=== PATIENT | female | born 1960 | race Caucasian/White ===

== ENCOUNTER → 2016-08-29 | Outpatient (CLI) | payer BC ==
[~2016-08-29] MED LIST: AMLO5TAB2 PO; ASPI81TA28 PO; ATV/1 PO; CALC500T25 PO; CHOL1000 PO; ERGO500037 PO; ERYT1OIN55 OPR; ESOM20CA PO; FURO40TA3 PO; IBUP-103 PO; LEVO150T PO; LORA-741 PO; LOSA100T65 PO; MISCCAP80 PO; MULTTAB58 PO; MXZC25 PO; OMEGCAP2 PO; OMEP20CA9 PO; OXYC-57 PO; PSYL48.59 PO
== END | disposition home or self-care (01) ==
LOC: C.PAPS 10:23
PROVIDERS: ATTEND Obstetrics & Gynecology
DX: Z01.419 Encounter for gynecological examination (general) (routine) without abnormal findings (principal)

== ENCOUNTER → 2016-11-29 | Outpatient (CLI) | payer BC | END | disposition home or self-care (01) | LOC: C.PATHSPEC 13:38 | PROVIDERS: ATTEND Obstetrics & Gynecology | DX: N95.0 Postmenopausal bleeding (principal) ==

== ENCOUNTER 2017-01-06 05:40 | Observation (INO) | payer BC ==
[2016-12-30 12:56] VITALS: BMI 48.0
--- NOTE | 2016-12-30 13:41 | PAT Medication Instructions ---
Service Date Dec 30, 2016. Current Home Medication List Aspirin (Aspirin Ec), 81 MG PO QAM Calcium Carbonate (Calcium), 1 TAB PO QAM Cholecalciferol (Vitamin D3), 1 TAB PO QAM Erythromycin (Ophth) (Ilotycin), 1 DOSE OPR TID PRN for PRN Furosemide (Lasix), 40 MG PO DAILY PRN for FLUID ACCUMULATION Ibuprofen Tab (Advil), 400 MG PO PRN Levothyroxine Sodium (Synthroid), 150 MCG PO 5XWK Levothyroxine Sodium (Synthroid), 1.5 TAB PO 2XWK Lorazepam (Ativan), 1 MG PO TID PRN for PRN Losartan Potassium (Cozaar), 100 MG PO QAM Multiple Vitamin (Multivitamin), 1 TAB PO QAM [place]-3 Fatty Acids (Fish Oil), 1 CAP PO QAM Omeprazole (Prilosec), 20 MG PO QAM Probiotic Product (Probiotic), 1 CAP PO QAM Psyllium (Metamucil), 1 DOSE PO QAM Triamterene/Hctz (Triamterene/Hctz 37.5-25MG Tab), 1 TAB PO QAM Medication Instructions For Your Scheduled Surgery Aspirin (Aspirin Ec), 81 MG PO QAM (not taking currently) Ibuprofen Tab (Advil), 400 MG PO PRN (not taking currently) [place]-3 Fatty Acids (Fish Oil), 1 CAP PO QAM (not taking currently) - Hold the following medications the morning of surgery: Triamterene/Hctz (Triamterene/Hctz 37.5-25MG Tab), 1 TAB PO QAM Psyllium (Metamucil), 1 DOSE PO QAM Probiotic Product (Probiotic), 1 CAP PO QAM Multiple Vitamin (Multivitamin), 1 TAB PO QAM Losartan Potassium (Cozaar), 100 MG PO QAM Furosemide (Lasix), 40 MG PO DAILY PRN for FLUID ACCUMULATION Calcium Carbonate (Calcium), 1 TAB PO QAM Cholecalciferol (Vitamin D3), 1 TAB PO QAM - Take the following medications the morning of surgery with a sip of water: Omeprazole (Prilosec), 20 MG PO QAM Lorazepam (Ativan), 1 MG PO TID PRN for PRN Levothyroxine Sodium (Synthroid), Erythromycin (Ophth) (Ilotycin), 1 DOSE OPR TID PRN for PRN - Take the following medications as scheduled the night before surgery: Lorazepam (Ativan), 1 MG PO TID PRN for PRN Erythromycin (Ophth) (Ilotycin), 1 DOSE OPR TID PRN for PRN If you have any questions please call us at [phone] or [phone] ( [place]) or [phone]
[2016-12-30 14:15] LABS: BASO % 0.2 %; BASO ABS # 0.01 K/uL (0-0.2); COMPLETE YES; EOS % 2.1 %; HEMATOCRIT 40.3 % (37-47); IG% 0.2 %; LYMPH % 26.8 %; LYMPH ABS # 1.56 K/uL (1.2-3.4); MEAN CELL VOLUME 93.5 fL (80-100); MEAN CORPUSCULAR HEMOGLOBIN 32.3 pg (25-34); MEAN CORPUSCULAR HGB CONC 34.5 g/dl (32-36); MEAN PLATELET VOLUME 10.6 fL (7.4-10.4); MONO % 6.7 %; PLATELET COUNT 166 K/uL (130-400); RED BLOOD COUNT 4.31 M/uL (4.2-5.4); WHITE BLOOD COUNT 5.82 K/uL (4.8-10.8)
[2016-12-30 15:43] LABS: BUN/CREATININE RATIO 16.2 (10-20); CALCIUM 9.3 mg/dl (8.5-10.1); CREATININE 1.5 mg/dl (0.60-1.20); POTASSIUM 3.5 mmol/L (3.5-5.1)
[~2017-01-06] VITALS: Ht 165.1 cm; Wt 132.0 kg
[2017-01-06] VITALS (7 sets, daily range): BP systolic 103–182; BP diastolic 60–91; PULSE 62–94; TEMP 36.3–36.8; O2SAT 2–98; Ht 165.1 cm; Wt 132.0 kg
[~2017-01-06 05:40] MED LIST changes: -ERGO500037 PO; -LORA-741 PO; -OMEP20CA9 PO; -OXYC-57 PO
[2017-01-06] MEDS ORDERED: CEFAZOLIN 3000 MG/65 ML D5W IV SCH (06:00)
[2017-01-06] MEDS ORDERED: LACTATED RINGER'S 1000ML 1,000 ML IV SCH ×2 (06:00)
[2017-01-06] MEDS ORDERED: EpHEDrine SULFATE INJ 50 MG/ML AMP ONE (06:46)
[2017-01-06] MEDS ORDERED: ONDANSETRON INJ 2 MG/ML 2 ML VIAL ONE (06:46)
[2017-01-06] MEDS ORDERED: PROPOFOL IV EMULSION 10 MG/ML 20 ML VIAL IV ONE (06:46)
[2017-01-06] MEDS ORDERED: ROCURONIUM BROMIDE 10 MG/ML 5 ML VIAL ONE (06:46)
[2017-01-06] MEDS ORDERED: MIDAZOLAM HCL 1 MG/ML 2ML VIAL ONE (06:46)
[2017-01-06] MEDS ORDERED: LIDOCAINE HCL 2% 2 ML VIAL (20MG/ML) ONE (06:46)
[2017-01-06] MEDS ORDERED: PHENYLEPHRINE HCL INJ 10 MG/ML VIAL ONE (06:46)
[2017-01-06] MEDS ORDERED: DEXAMETHASONE SOD INJ 4 MG/ML VIAL ONE ×2 (06:46→06:58)
[2017-01-06] MEDS ORDERED: SUCCINYLCHOLINE CHLORIDE 20 MG/ML 10 ML VIAL IV ONE (06:46)
[2017-01-06] MEDS ORDERED: FENTANYL CITRATE INJ 50 MCG/1 ML 2 ML VIAL ONE (06:46)
[2017-01-06] MEDS ORDERED: GLYCOPYRROLATE INJ 0.2 MG/ML VIAL ONE (06:46)
[2017-01-06] MEDS ORDERED: NEOSTIGMINE METHYLSULFATE 5 MG/5 ML SYR ONE (06:46)
--- NOTE | 2017-01-06 06:53 | History & Physical Bridge Note ---
H&P Re-Evaluation Bridge Note: I have examined the patient, reviewed the History & Physical and in the interval since the performance of the History & Physical I have noted the following changes of clinical significance: No changes noted
[2017-01-06] MEDS ORDERED: METHYLENE BLUE 0.5% 10 ML VIAL ONE (06:57)
[2017-01-06] MEDS ORDERED: LACTATED RINGER'S 1000ML 1,000 ML IV PRN (07:11)
[2017-01-06] MEDS ORDERED: HYDROmorphone INJ 1 MG/ML SYR IV PRN (07:15)
[2017-01-06] MEDS ORDERED: FENTANYL CITRATE INJ 50 MCG/1 ML 2 ML VIAL IV PRN (07:15)
[2017-01-06] MEDS ORDERED: ONDANSETRON INJ 2 MG/ML 2 ML VIAL IV PRN ×2 (07:15→09:45)
[2017-01-06] MEDS ORDERED: ARTIFICIAL TEARS OP OINT 3.5 GM TUBE ONE (09:15)
[2017-01-06] MEDS ORDERED: D5W AND LACTATED RINGERS 1,000 ML IV SCH (09:32)
--- NOTE | 2017-01-06 09:35 | Discharge Instructions ---
Discharge Instructions Date of Service Jan 06, 2017. Visit Reason for Visit: Post Menopausal Bleeding Discharge Discharge Diagnosis / Problem: hysterectomy Discharge Goals Goal(s): Specific goals Activity Recommendations Activity Limitations: per Instructions/Follow-up section Anesthesia . Post Anesthesia Instructions: If you have had General Anesthesia or IV Sedation: * Do not drive today. * Resume driving when surgeon permits. * Do not make important decisions or sign legal documents today. * Call surgeon for: 1. Temperature elevations greater than 101 degrees F. 2. Uncontrollable pain. 3. Excessive bleeding. 4. Persistent nausea and vomiting. 5. Medication intolerance (nausea, vomiting or rash). * For nausea and vomiting use only clear liquids such as: tea, soda, bouillon until nausea subsides, then gradually increase diet as tolerated. * If you have any concerns or questions, call your surgeon's office. If physician is unavailable and it is an emergency, call 911 or go to the nearest emergency room. . Instructions / Follow-Up Instructions / Follow-Up POST OPERATIVE: BOWEL FUNCTION/MEDICATIONS: 1. Constipation pain and discomfort are the most common complaints 5-7 days after surgery. Points 2-6 address the things that can help. 2. Chewing gum can help stimulate the gut and help improve digestion and motility. 3. Milk of Magnesia 1-2 times per day until return of bowel function. 4. Colace is a stool softener that helps. Taking this 2-3 times per day until bowel function returns to normal is highly recommended. 5. Dulcolax is a laxative that may be used if several days have passed without a bowel movement. Alternatively Miralax may be used daily instead. 6. Drink plenty of fluids as this will also reduce constipation. 7. Narcotic pain medications will be prescribed by your physician. They are safe to use and we encourage you to use them. If you are not allergic, ibuprofen will also be prescribed. Many patients will be able to transition off of the narcotic medications to ibuprofen by postoperative day 3. ACTIVITY RECOMMENDATIONS: 1. Get plenty of rest and listen to your body. If you are tired, take a nap. 2. You may shower, but do not take a tub bath until you see your doctor at the 2 week post operative visit. 3. Absolutely NO intercourse and nothing in the vagina until you are examined by your doctor at the 6 week visit. At that visit it will be determined when such activities can be resumed. This can range from 6-12 weeks after your surgery depending on healing time. 4. The main physical activity in the first week should be walking. By the second week you can slowly increase activity. There are no limits on walking up and down stairs. 5. Do not lift more than 5-10 lbs for 4 weeks. Remember the "one-handed rule", i.e. if you can lift something with only one hand it's likely okay. 6. Minimize weapons and tactics instructor like vacuuming and exercising for 4 weeks. "Overdoing it" can lead to incisions not healing, pain and vaginal bleeding , so again, listen to your body. 7. Driving can be resumed when you feel able. Do not drive within 24 hours of taking a narcotic medication. EXPECTATIONS: 1. Vaginal spotting, bleeding and discharge are common after surgery. There may even be an odor to the discharge which is often related to sutures used in the vagina. If you experience heavy vaginal bleeding, call the office number day or night [phone]. 2. Bladder discomfort is common after surgery from the catheter. This usually resolves in 1-2 weeks. 3. By the end of the 3rd or 4th week you should be feeling much better. It may take up to 6 weeks for your energy levels to return to normal. 4. Narcotic medications have side effects such as: dizziness, headache, nausea and/or vomiting. If you suspect your pain medication is causing problems, call our office and we may be able to prescribe an alternate medication. 5. The skin incisions are often covered with a liquid bandage. This will gradually peel off over time. CALL THE OFFICE IF YOU HAVE ANY OF THE FOLLOWIN. Temperature of 101 degrees or higher. 2. Severe abdominal or pelvic pain not relieved by pain medication. 3. Persistent nausea or vomiting. 4. Increased pain with urination or difficulty urinating. 5. Bright red bleeding that soaks more than 1 pad per hour. CONTACT PHONE NUMBERS: Main Office: [phone] Surgical Nurse: [phone] extension [phone] FOLLOW-UP: Post-Operative Appointments: * Individual instructions will have been given about the timing of your first examination, but this is usually at the end of the second week home. * You will need to call the office at soon after discharge to make the appointment for your post-op check-up if it has not already been scheduled. * Additional information regarding activity, sexual intercourse and when to return to work will be given at this appointment. WE WISH YOU A SPEEDY RECOVERY! Diet Recommendations Recommended Home Diet: resume previous diet Procedures Procedures Performed: Total Laparoscopic Hysterectomy Bilateral Salpingectomy Robot Assist; Cystoscopy Pending Studies Studies pending at discharge: no Medical Emergencies . Who to Call and When: Medical Emergencies: If at any time you feel your situation is an emergency, please call 911 immediately. . Non-Emergent Contact Non-Emergency issues call your: Primary Care Provider . . "Provider Documentation" section prepared by Baylee Garzon. . [place] Drug Monitoring Program Search Results: patient reviewed within database, no issues identified
--- NOTE | 2017-01-06 09:36 | [facility] Post Operative Brief Note ---
Immediate Operative Summary Operative Date Jan 06, 2017. Pre-Operative Diagnosis Post Menopausal Bleeding and uterine Prolapse Post-Operative Diagnosis Same as preop Procedure(s) Performed Total Laparoscopic Hysterectomy Bilateral Salpingectomy Robot Assist; Cystoscopy Surgeon Dr. Garzon Lithopone Charger Surgeon(s) None Estimated Blood Loss 20 ML Findings Significant fatty deposits throughout pelvis, including on mesosalpinx and broad ligaments. Normal ovaries, tubes bilaterally. Uterus small, laxity in uterosacral ligaments. Specimens A. Cervix, Uterus, and Bilateral Fallopian Tubes Complication(s) None Disposition Recovery Room / PACU
[2017-01-06] MEDS ORDERED: PROMETHAZINE HCL INJ 25 MG in SODIUM CHLORIDE 0.9% 50ML 50 ML IV PRN (09:45)
[2017-01-06] MEDS ORDERED: KETOROLAC TROMETHAMINE 30 MG/ML VIAL IV. PRN (09:45)
[2017-01-06] MEDS ORDERED: IBUPROFEN 600 MG TAB PO PRN (09:45)
[2017-01-06] MEDS ORDERED: ACETAMINOPHEN 325 MG TAB PO PRN (09:45)
[2017-01-06] MEDS ORDERED: SIMETHICONE 80 MG CHEW PO PRN (09:45)
[2017-01-06] MEDS ORDERED: PROMETHAZINE HCL INJ 12.5 MG in SODIUM CHLORIDE 0.9% 50ML 50 ML IV PRN (09:45)
[2017-01-06] MEDS ORDERED: OXYCODONE/ACETAMINOPHEN 5-325 TAB PO PRN ×2 (09:45)
[2017-01-06] MEDS ORDERED: MEPERIDINE HCL 50 MG/ML CARP IV PRN ×2 (09:45)
--- NOTE | 2017-01-06 10:10 | Anesthesiology Progress Note ---
Anesthesia Post Op Note Date & Time Jan 06, 2017 at 10:10 Vital Signs Pain Intensity: 5 Vital Signs Past 12 Hours Date Time Temp Pulse Resp B/P (MAP) Pulse Ox O2 Delivery O2 Flow Rate FiO2 01/06/17 10:02 70 19 95 01/06/17 10:02 70 19 01/06/17 10:01 102/62 01/06/17 09:57 66 21 01/06/17 09:57 67 21 92 01/06/17 09:56 107/57 01/06/17 09:52 62 18 92 01/06/17 09:52 62 18 01/06/17 09:51 97/53 01/06/17 09:47 65 17 01/06/17 09:47 65 17 95 01/06/17 09:46 102/59 01/06/17 09:42 66 18 94 01/06/17 09:42 66 18 01/06/17 09:41 97/59 01/06/17 09:37 64 17 01/06/17 09:37 64 17 96 01/06/17 09:36 93/57 01/06/17 09:32 69 16 01/06/17 09:32 69 16 95 01/06/17 09:31 99/62 01/06/17 09:27 66 20 01/06/17 09:27 66 20 97 01/06/17 09:26 97/56 01/06/17 09:24 95/56 01/06/17 09:22 76 76 01/06/17 09:22 36.0 72 12 95/56 94 Mask 15 01/06/17 09:22 76 76 90 01/06/17 06:13 36.8 94 18 182/91 (121) 96 Room Air Notes Mental Status: alert / awake / arousable, participated in evaluation Pt Amnestic to Procedure: Yes Nausea / Vomiting: adequately controlled Pain: adequately controlled Airway Patency, RR, SpO2: stable & adequate BP & HR: stable & adequate Hydration State: stable & adequate Anesthetic Complications: no major complications apparent Pt drowsy but doing well. Pain tolerable.
--- NOTE | 2017-01-06 10:17 | OPERATIVE REPORT ---
DATE OF OPERATION: 01/06/2017 PREOPERATIVE DIAGNOSES: Recurrent postmenopausal bleeding and uterine prolapse. POSTOPERATIVE DIAGNOSES: Same. PROCEDURES: Total laparoscopic hysterectomy, bilateral salpingectomy with robotic assistance and cystoscopy. SURGEON: Dr. Baylee Garzon. INDUSTRIAL AUTOMATION ENGINEER: None. ESTIMATED BLOOD LOSS: 20 mL. FINDINGS: Significant fatty deposit throughout the pelvis including on the mesosalpinx and broad ligaments bilaterally. Normal ovaries and tubes bilaterally. Uterus was small with significant laxity in the uterosacral ligaments. SPECIMENS: Cervix, uterus, and bilateral fallopian tubes. COMPLICATIONS: None. DISPOSITION: Stable to recovery room. DESCRIPTION OF PROCEDURE: Debbie is a 56-year-old patient who has been followed for several years with postmenopausal bleeding, who desired termination of these recurrent workup by removing the uterus. Additionally, she has uterine prolapse, which has been successfully managed with a pessary, but the patient is optimistic that removing the uterus may improve her prolapse. She was counseled and is well aware that prior to surgery, we cannot guarantee that her prolapse will be significantly improved or cured as due to her personal history, she cannot tolerate a placement of any permanent sutures or mesh. The patient was brought to the operating room, placed on the table in the supine position and then dorsal lithotomy with Yellofin stirrups. She was prepped and draped in standard sterile fashion and a hard time-out was taken prior to proceeding. Chavez and a [employer] uterine manipulator were placed. Attention was then turned to the abdomen, where a supraumbilical incision was made. An optical entry was made using a 12-mm port and the abdomen was then insufflated with CO2 gas. Under direct visualization, right and left lower quadrant ports were placed. The patient was placed in steep Trendelenburg and visualization of the pelvic organs revealed significant fatty deposits, but otherwise normal organs as described above. The robot was then docked and surgery began. The sigmoid colon was freed of several adhesions over the left pelvic sidewall in order to mobilize this and increase visibility of the left IP ligament; however, due to fatty deposits, we were able to directly visualize the ureter on either side. The mesosalpinx was then dissected to free the fallopian tubes. The uteroovarian ligament was ligated and divided. The round ligament was ligated and divided and the bladder flap was started on the left side. This procedure was then repeated on the right and a bladder flap was then created completely across the front of the uterus. The posterior broad ligament was dissected to skeletonize the uterine arteries, which were ligated and divided bilaterally. Colpotomy was completed circumferentially and the uterus, cervix and bilateral fallopian tubes were delivered through the vagina. The V-Loc suture was used to close the vaginal cuff in the typical running nonlocked manner; however, caution was undertaken to securely incorporate the uterosacral ligaments bilaterally into this cuff. Once the cuff was closed, the suture and residual needle were removed. The suction top frame maker was used to irrigate and clean the cuff site, which revealed good hemostasis; however, there was a small area of oozing from between the sutures in the midline. It was felt that this would be best addressed by Tisseel, which was then applied across the cuff to achieve good hemostasis. At this time, all the laparoscopic instruments were removed. The patient was undocked from the robot and partially taken out of Trendelenburg. Cystoscopy was then performed. Although methylene blue was administered at least 15 minutes prior to cystoscopy, limited blue dye was seen in the Chavez catheter and the jets of urine, which were seen from each ureteral orifice were minimally if at all stained blue. The patient has known significant renal insufficiency and it was felt that the additional risk of waiting for her to create blue stained urine was not worth the risks of the additional anesthetic time, which she would be receiving while we waited. Therefore, we accepted jets of very minimally stained mostly yellow urine from each ureteral orifice as evidence of ureteral patency. The bladder was then drained. Instruments were removed from the abdomen. The umbilical site was closed with a UR-6 suture at the fascial level. Again, given the patient's personal history, we elected not to place any sutures at the skin and instead, all 3 incisions were closed with Dermabond and the patient was then transferred in stable condition to recovery room. I attest to the content of the Intraoperative Record and any orders documented therein. Any exceptions are noted below. VERNA
[2017-01-06] MEDS: IV FLUIDS COMPLETED PRN ×2 (11:00→16:32)
[2017-01-06] MEDS ORDERED: TISSEEL FIBRIN SEALANT 10ML TOP ONE (11:41)
[2017-01-06] MEDS ORDERED: OXYC-57 PO (14:52)
[2017-01-06 15:10] LABS: HEMATOCRIT 38.1 % (37-47)
[2017-01-06] MEDS ORDERED: DOCUSATE SODIUM 100 MG CAP PO SCH (20:00)
--- NOTE | 2017-01-16 10:06 | Discharge Summary ---
Discharge Summary Date of Service Jan 16, 2017. Discharge Summary Admission Date: Jan 06, 2017 at 05:50 Discharge Date: Jan 06, 2017 Discharge Disposition: Home Principal Diagnosis: PMB, Prolapse, Hysterectomy Procedures: Robotic TLH, Salpingectomy, Cystoscopy Medication Reconciliation New Medications: Oxycodone/Acetaminophen 5MG/325MG (Percocet 5MG/325MG) Tab 1 TABLET PO Q4H PRN for Pain, #15 TAB Continued Medications: Amlodipine Besylate (Norvasc) 5 Mg Tab 1 TAB PO DAILY, TAB Aspirin (Aspirin Ec) 81 Mg Tab 81 MG PO QAM Calcium Carbonate (Calcium) 1,250 Mg Tab 1 TAB PO QAM Cholecalciferol (Vitamin D3) 1,000 Unit Tab 1 TAB PO QAM for 90 Days, #90 TAB 3 Refills Erythromycin (Ophth) (Ilotycin) 5 Mg/Gm Oin 1 DOSE OPR TID PRN for PRN Esomeprazole Magnesium (Nexium) 20 Mg Capcr 1 TAB PO DAILY, CAP Furosemide (Lasix) 40 Mg Tab 40 MG PO DAILY PRN for FLUID ACCUMULATION, TAB Ibuprofen Tab (Advil) 200 Mg Tab 400 MG PO PRN, TAB Levothyroxine Sodium (Synthroid) 150 Mcg Tab 150 MCG PO 5XWK, TAB DAILY EXCEPT FRIDAY AND FRIDAYS-AM Levothyroxine Sodium (Synthroid) 150 Mcg Tab 1.5 TAB PO 2XWK, TAB TAKE ON MONDAYS AND FRIDAYS-AM Lorazepam (Ativan) 1 Mg Tab 1 MG PO TID PRN for PRN, TAB Losartan Potassium (Cozaar) 100 Mg Tab 100 MG PO QAM, TAB Multiple Vitamin (Multivitamin) 1 Tab Tab 1 TAB PO QAM, TAB [place]-3 Fatty Acids (Fish Oil) 1 Cap Cap 1 CAP PO QAM Probiotic Product (Probiotic) 1 Cap Cap 1 CAP PO QAM Psyllium (Metamucil) 48.57 % Pow 1 DOSE PO QAM Triamterene/Hctz (Triamterene/Hctz 37.5-25MG Tab) 1 Tab Tab 1 TAB PO QAM, TAB Hospital Course Uncomplicated surgery as planned, discharge in good condition POD#0 with routine f/u. Total Time Spent: Less than 30 minutes This includes examination of the patient, discharge planning, medication reconciliation, and communication with other providers. Discharge Instructions Please refer to the electronic Patient Visit Report (Discharge Instructions) for additional information.
== END 2017-01-06 18:20 | disposition home or self-care (01) ==
LOC: C.ACU 05:40 → C.OBG 05:50 → ENRESERV 10:30
PROVIDERS: ADMIT Obstetrics & Gynecology; ATTEND Obstetrics & Gynecology
DX: N95.0 Postmenopausal bleeding (principal); N81.4 Uterovaginal prolapse, unspecified; J45.909 Unspecified asthma, uncomplicated; N18.9 Chronic kidney disease, unspecified; G51.0 Bell's palsy; I12.9 Hypertensive chronic kidney disease with stage 1 through stage 4 chronic kidney disease, or unspecified chronic kidney disease; M19.90 Unspecified osteoarthritis, unspecified site; Z98.890 Other specified postprocedural states; Z79.899 Other long term (current) drug therapy; Z88.1 Allergy status to other antibiotic agents; E66.01 Morbid (severe) obesity due to excess calories; Z68.42 Body mass index [BMI] 45.0-49.9, adult; Z83.49 Family history of other endocrine, nutritional and metabolic diseases; Z82.49 Family history of ischemic heart disease and other diseases of the circulatory system
CPT/HCPCS: 58571; S2900

== ENCOUNTER → 2017-02-19 | Outpatient (CLI) | payer BC ==
[~2017-02-19] MED LIST changes: +OXYC-57 PO
[2017-02-19 11:08] LABS: BLOOD UREA NITROGEN 22 mg/dl (7-18); BUN/CREATININE RATIO 14.8 (10-20); CALCIUM 9.1 mg/dl (8.5-10.1); CARBON DIOXIDE 31 mmol/L (21-32); CHLORIDE 106 mmol/L (98-107); GLUCOSE 114 mg/dl (70-99); POTASSIUM 3.3 mmol/L (3.5-5.1); SODIUM 140 mmol/L (136-145)
== END | disposition home or self-care (01) ==
LOC: C.LAB1850 09:51
PROVIDERS: ATTEND Family Medicine
DX: N28.9 Disorder of kidney and ureter, unspecified (principal)

== ENCOUNTER → 2017-03-10 | Outpatient (CLI) | payer BC ==
[2017-03-10 14:29] LABS: URINE APPEARANCE CLEAR (CLEAR); URINE BILIRUBIN NEG (NEG); URINE COLOR YELLOW; URINE EPITHELIAL CELL AUTO >30 /lpf (0-5); URINE NITRITE NEG (NEG); URINE SPECIFIC GRAVITY 1.013 (1.000-1.030); UROBILINOGEN NEG (NEG); ZZUR CULT IF INDIC CLEAN CATCH NO
[2017-03-10 14:50] LABS: URINE PROTIEN/CREAT RATIO 0.2 (0-0.2); URINE TOTAL PROTEIN 9.7 mg/dl (0-11.9)
[2017-03-10 14:55] LABS: MANUAL MICROSCOPIC REQUIRED? NO; REVIEW REQ? NO
== END | disposition home or self-care (01) ==
LOC: C.LAB1850 12:13
PROVIDERS: ATTEND Internal Medicine Nephrology
DX: N18.3 Chronic kidney disease, stage 3 (moderate) (principal)

== ENCOUNTER → 2017-03-20 | Outpatient (CLI) | payer BC ==
--- NOTE | 2017-03-20 11:47 | DIAGNOSTIC IMAGING REPORT ---
RENAL ULTRASOUND CLINICAL HISTORY: Hypokalemia. COMPARISON STUDY: None. TECHNIQUE: Sonography of the kidneys and the urinary bladder was performed. FINDINGS: The right kidney measures 9.8 x 4.9 x 4.6 cm and left measures 11 x 5.1 x 5.1 cm. There is no hydronephrosis. Renal echogenicity, size and cortical thickness are normal. Bladder is unremarkable. Study is mildly compromised by suboptimal penetration. IMPRESSION: Normal sonographic appearance of the kidneys. No hydronephrosis. Electronically signed by: Brendan Butts M.D. 03/20/2017 11:46 AM Dictated Date/Time: 03/20/2017 11:45 AM
== END | disposition home or self-care (01) ==
LOC: C.ULTR 10:54
PROVIDERS: ATTEND Internal Medicine Nephrology
DX: E87.6 Hypokalemia (principal)

== ENCOUNTER → 2017-04-29 | Outpatient (CLI) | payer BC ==
[2017-04-29 10:08] LABS: BASO % 0.3 %; BASO ABS # 0.02 K/uL (0-0.2); COMPLETE YES; EOS % 1.9 %; HEMATOCRIT 39.2 % (37-47); IG% 0.1 %; LYMPH % 27.8 %; LYMPH ABS # 1.87 K/uL (1.2-3.4); MEAN CELL VOLUME 93.6 fL (80-100); MEAN CORPUSCULAR HEMOGLOBIN 30.8 pg (25-34); MEAN CORPUSCULAR HGB CONC 32.9 g/dl (32-36); MEAN PLATELET VOLUME 10.6 fL (7.4-10.4); MONO % 5.2 %; NEUT % 64.7 %; PLATELET COUNT 161 K/uL (130-400); RED BLOOD COUNT 4.19 M/uL (4.2-5.4); WHITE BLOOD COUNT 6.72 K/uL (4.8-10.8)
[2017-04-29 10:24] LABS: BLOOD UREA NITROGEN 36 mg/dl (7-18); BUN/CREATININE RATIO 18.7 (10-20); CALCIUM 8.7 mg/dl (8.5-10.1); CARBON DIOXIDE 25 mmol/L (21-32); CHLORIDE 107 mmol/L (98-107); GLUCOSE 119 mg/dl (70-99); MAGNESIUM 1.7 mg/dl (1.8-2.4); POTASSIUM 3.6 mmol/L (3.5-5.1); SODIUM 141 mmol/L (136-145)
== END | disposition home or self-care (01) ==
LOC: C.LAB1850 09:13
PROVIDERS: ATTEND Internal Medicine Nephrology
DX: N18.3 Chronic kidney disease, stage 3 (moderate) (principal)

== ENCOUNTER → 2017-06-13 | Outpatient (CLI) | payer BC ==
[2017-06-13 09:35] LABS: BLOOD UREA NITROGEN 28 mg/dl (7-18); BUN/CREATININE RATIO 21.2 (10-20); CALCIUM 9.4 mg/dl (8.5-10.1); CARBON DIOXIDE 27 mmol/L (21-32); CHLORIDE 102 mmol/L (98-107); GLUCOSE 129 mg/dl (70-99); MAGNESIUM 1.9 mg/dl (1.8-2.4); PHOSPHORUS 2.8 mg/dl (2.5-4.9); POTASSIUM 3.2 mmol/L (3.5-5.1); SODIUM 137 mmol/L (136-145)
== END | disposition home or self-care (01) ==
LOC: C.LAB 07:26
PROVIDERS: ATTEND Internal Medicine Nephrology
DX: N18.3 Chronic kidney disease, stage 3 (moderate) (principal); E87.6 Hypokalemia

== ENCOUNTER → 2017-07-30 | Outpatient (CLI) | payer OTHER ==
[~2017-07-30] MED LIST changes: -OXYC-57 PO
[2017-07-30 10:01] LABS: BLOOD UREA NITROGEN 23 mg/dl (7-18); CALCIUM 9.4 mg/dl (8.5-10.1); CARBON DIOXIDE 29 mmol/L (21-32); GLUCOSE 133 mg/dl (70-99); POTASSIUM 3.4 mmol/L (3.5-5.1); SODIUM 137 mmol/L (136-145)
== END | disposition home or self-care (01) ==
LOC: C.LAB1850 08:42
PROVIDERS: ATTEND Internal Medicine Nephrology
DX: E87.6 Hypokalemia (principal)

== ENCOUNTER → 2017-09-19 | Outpatient (CLI) | payer OTHER ==
[2017-09-19 09:34] LABS: BASO % 0.2 %; BASO ABS # 0.01 K/uL (0-0.2); EOS % 2.4 %; EOS ABS # 0.14 K/uL (0-0.5); HEMATOCRIT 40.8 % (37-47); HEMOGLOBIN 13.8 g/dL (12.0-16.0); IG# 0.02 K/uL (0.00-0.02); LYMPH % 31.9 %; LYMPH ABS # 1.83 K/uL (1.2-3.4); MEAN CELL VOLUME 94.4 fL (80-100); MEAN CORPUSCULAR HEMOGLOBIN 31.9 pg (25-34); MEAN CORPUSCULAR HGB CONC 33.8 g/dl (32-36); MEAN PLATELET VOLUME 10.8 fL (7.4-10.4); MONO % 5.1 %; MONO ABS # 0.29 K/uL (0.11-0.59); NEUT % 60.1 %; NEUT ABS # 3.44 K/uL (1.4-6.5); PLATELET COUNT 167 K/uL (130-400); RED CELL DISTRIBUTION WIDTH CV 14.1 % (11.5-14.5); WHITE BLOOD COUNT 5.73 K/uL (4.8-10.8)
[2017-09-19 09:53] LABS: HEMOGLOBIN A1C 6.1 % (4.5-5.6)
[2017-09-19 09:56] LABS: BLOOD UREA NITROGEN 17 mg/dl (7-18); CALCIUM 8.9 mg/dl (8.5-10.1); CARBON DIOXIDE 28 mmol/L (21-32); CREATININE 1.13 mg/dl (0.60-1.20); GLUCOSE 130 mg/dl (70-99); POTASSIUM 3.5 mmol/L (3.5-5.1); SODIUM 138 mmol/L (136-145)
[2017-09-19 10:06] LABS: TRANSFERRIN 222 mg/dl (200-360)
== END | disposition home or self-care (01) ==
LOC: C.LAB1850 08:28
PROVIDERS: ATTEND Internal Medicine Nephrology
DX: R73.9 Hyperglycemia, unspecified (principal); E03.9 Hypothyroidism, unspecified; E87.6 Hypokalemia; N18.3 Chronic kidney disease, stage 3 (moderate); I12.9 Hypertensive chronic kidney disease with stage 1 through stage 4 chronic kidney disease, or unspecified chronic kidney disease

== ENCOUNTER → 2017-10-17 | Outpatient (CLI) | payer OTHER ==
--- NOTE | 2017-10-22 07:55 | MAMMOGRAPHY REPORT ---
BILATERAL DIGITAL SCREENING MAMMOGRAM TOMOSYNTHESIS WITH CAD: 10/17/2017 CLINICAL HISTORY: Routine screening. Patient has no complaints. There are numerous benign rim calcifications scattered in the breasts. Stable faint groupings of pun ctate micro calcifications in the left breast. Mild involutional changes comparing to more remote pr ior mammograms. TECHNIQUE: Breast tomosynthesis in addition to standard 2D mammography was performed. Current study was also evaluated with a Computer Aided Detection (CAD) system. COMPARISON: Comparison is made to exams dated: 06/24/2016 mammogram, 06/21/2015 mammogram, 06/20/2014 m ammogram, 06/18/2013 mammogram, and 06/17/2012 mammogram - [facility]. BREAST COMPOSITION: The tissue of both breasts is almost entirely fatty. FINDINGS: There are numerous benign rim calcifications scattered in the breasts. Stable faint groupi ngs of punctate microcalcifications in the left breast. Mild involutional changes comparing to more remote prior mammograms. No new suspicious mass, architectural distortion or cluster of microcalcific ations is seen. IMPRESSION: ACR BI-RADS CATEGORY 1: NEGATIVE There is no mammographic evidence of malignancy. A 1 year screening mammogram is recommended. The pa tient will receive written notification of the results. Approximately 10% of breast cancers are not detected with mammography. A negative mammographic report should not delay biopsy if a clinically suggestive mass is present. Esli Lorenzana M.D. ay/:10/21/2017 14:14:48 Resistor Testing Machine Operator: Parish Dupree M, [facility] letter sent: Normal 1/2 BI-RADS Code: ACR BI-RADS Category 1: Negative
== END | disposition home or self-care (01) ==
LOC: C.MAMM 10:23
PROVIDERS: ATTEND Obstetrics & Gynecology
DX: Z12.31 Encounter for screening mammogram for malignant neoplasm of breast (principal)

== ENCOUNTER → 2017-11-17 | Outpatient (CLI) | payer OTHER ==
[2017-11-17 09:55] LABS: ALBUMIN 3.6 gm/dl (3.4-5.0); BLOOD UREA NITROGEN 18 mg/dl (7-18); CALCIUM 9.2 mg/dl (8.5-10.1); CARBON DIOXIDE 28 mmol/L (21-32); CREATININE 1.48 mg/dl (0.60-1.20); GLUCOSE 118 mg/dl (70-99); POTASSIUM 3.5 mmol/L (3.5-5.1); SODIUM 140 mmol/L (136-145)
[2017-11-17 10:06] LABS: PHOSPHORUS 3.3 mg/dl (2.5-4.9)
== END | disposition home or self-care (01) ==
LOC: C.LAB1850 08:24
PROVIDERS: ATTEND Internal Medicine Nephrology
DX: N18.3 Chronic kidney disease, stage 3 (moderate) (principal)

== ENCOUNTER 2020-08-25 19:51 | Inpatient (IN) ==
[2020-08-25] MEDS ORDERED: ONDANSETRON INJ 2 MG/ML 2 ML VIAL IV STA (20:32)
--- NOTE | 2020-08-25 20:37 | Emergency Department Note ---
Impression & Plan DKA (diabetic ketoacidoses), SEMAJ (acute kidney injury), Acute dehydration, Hypokalemia ED Provider Note NAME: AVELINA TREVINO AGE: 60 SEX: F : 1960 ARRIVES VIA: Walk-In INFORMANT: [Patient] ED PROVIDER(S): [Altaf Galvan MD] CHIEF COMPLAINT: Hyperglycemia HISTORY OF PRESENT ILLNESS: The patient is a 60-year-old female presents to the ER with a blood sugar around 800. The patient states that she stopped her Metformin just over a week ago because it was making her feel poorly. She was taking it because she was told she was prediabetic. In the last 24 to 48 hours the patient has noticed nausea and weakness and fatigue. She is sleeping all the time. She is always thirsty and she is urinating quite frequently. No fever, no chest pain or shortness of breath. She has noticed some occasional abdominal cramps. No urinary burning. REVIEW OF SYSTEMS: See HPI for pertinent positives and negatives. A total of ten systems were reviewed and were otherwise negative. PMHx/PSHx: See Below SOCIAL HISTORY: See Below. PHYSICAL EXAM: GENERAL: Patient is in no acute distress. HEENT: No acute trauma, normocephalic atraumatic, mucous membranes moist, no nasal congestion, no scleral icterus. NECK: No stridor, no adenopathy, no meningismus, trachea is midline. LUNGS: Clear to auscultation bilaterally, no wheeze, no rhonchi, breath sounds equal. HEART: Mildly tachycardic, regular rhythm, no murmurs. ABDOMEN: Soft, nontender, bowel sounds positive, no hernias, no peritonitis. EXTREMITIES: No cyanosis, mild bilateral pedal edema, full range of motion of all the joints without pain or difficulty, no signs for acute trauma. NEUROLOGIC: Oriented x 3, no acute motor or sensory deficits, no focal weakness. SKIN: No rash, no jaundice, no diaphoresis. DIFFERENTIAL DIAGNOSIS: Infection, dehydration, metabolic abnormality, hypo/hyperglycemia, electrolyte disturbance, anemia, hypoxia, cardiac sources, intracerebral event, toxicologic issues, stroke, TIA, as well as other pathologies. EMERGENCY DEPARTMENT COURSE/PROCEDURES: ECG: Indication was weakness. The ECG shows a normal sinus rhythm with some baseline artifact. There is some nonspecific ST change. The rate is 89. The QTc is 498. There is no ST elevation, no PVCs. Continuous Cardiac Monitoring: An order was placed for continuous cardiac monitoring. The monitor shows a rate of 80 with normal sinus rhythm. Critical Care Note: I have personally spent 37 minutes of critical care time in the direct management of this patient. This includes bedside care, interpreta tion of diagnostic studies, and testing, discussion with consultants, patient, and family members, and other required patient management activities. This 37 minutes is in excess of all separately billable procedures. MEDICAL DECISION MAKING: There is no leukocytosis or concerning anemia. VBG shows a mild acidosis. Renal panel testing shows evidence for acidosis. Potassium was low at 3.3. There was evidence for acute kidney injury with a creatinine of 2.05. Glucose was quite high at 645. Alk phos was somewhat elevated, the remaining liver enzymes were unremarkable. TSH was normal indicating normal thyroid function. ECG showed a sinus rhythm, no acute ischemia. Cardiac enzyme testing x1 is not consistent with acute cardiac injury. Urinalysis shows ketones and glucose, no infection. Covid testing returned negative. Chest film did not show pneumonia or pneumothorax. No free air. On exam, the patient was mildly tachycardic. She did not appear toxic, she was not confused or febrile. The patient received 2 L of IV saline for hydration. She was given IV potassium as well as IV Zofran. The patient is in need of a hospital stay. She is in diabetic ketoacidosis. She is quite dehydrated with acute renal failure as well as hypokalemia. She is going to require IV insulin therapy. I spoke to the patient, I talked to case management. The on-call hospitalist has been consulted. I did not administer any insulin as I felt the need to furt her correct her potassium. Past Med/Surg History Medical History Asthma Chronic pain of both knees Heartburn HTN (hypertension) Leg pain, right No pertinent past medical history Postmenopausal bleeding Stage 3 chronic kidney disease Uterine prolapse Venous insufficiency Surgical History H/O: hysterectomy History of facial surgery Family History Father Cardiac disorder Colon cancer Myocardial infarction Heart disease Mother Atrial fibrillation Thyroid disease Family/Other Hypertension Denies family history of Ovarian cancer Prostate cancer Breast cancer Social History Smoking Status: Never smoker Second Hand Exposure: No; Hx Alcohol Use: Yes Alcohol type: hard liquor Alcohol Intake Frequency: 2-3 x/Week Hx Substance Use: No Preferred Language: Tajik Communication Ability: Effective Visual Impairment: No Limitations Hearing Ability: Deaf marital status: Current Living Situation: Spouse current occupational status: retired Feels Safe at Home: Yes Childhood Exposure to Second-Hand Smoke: No Dental Care, Regularly: Yes Physical Activity Frequency: 1-2 Times per Week Seatbelt Use: always Sunscreen Use: Yes Allergies Allergies Allergy/AdvReac Type Severity Reaction Status Date / Time amoxicillin Allergy Intermediate FEET Verified 08/25/20 22:49 SWELLING, THYROID ABNORMALATIES clavulanic acid Allergy Intermediate FEET Verified 08/25/20 22:49 SWELLING, THYROID ABNORMALATIES clindamycin Allergy Intermediate RASH Verified 08/25/20 22:49 Home Meds Home Medications Medication Instructions Recorded Confirmed esomeprazole magnesium 20 mg 20 mg PO DAILY cap 02/25/19 08/25/20 capsule,delayed release multivitamin 1 tab PO DAILY 02/25/19 08/25/20 albuterol sulfate 90 mcg/actuation 2 puffs INHALATION Q4H PRN #1 gm 03/30/19 08/25/20 aerosol inhaler aspirin 81 mg tablet 81 mg PO DAILY tab 03/30/19 08/25/20 erythromycin 5 mg/gram (0.5 %) eye 1 applic OP UD PRN 03/30/19 08/25/20 ointment horse chestnut 300 mg tablet 300 mg PO DAILY tab 03/30/19 08/25/20 magnesium oxide 400 mg (241.3 mg 400 mg PO DAILY #30 tab 03/30/19 08/25/20 magnesium) tablet oregano oil 1,500 mg capsule 1,500 mg PO DAILY cap 03/30/19 08/25/20 Lactobacillus 1 cap PO DAILY cap 04/27/19 08/25/20 acidophilus-Bifidobac.animalis 31 billion cell capsule cholecalciferol (vitamin D3) 125 5,000 units PO DAILY tab 04/27/19 08/25/20 mcg (5,000 unit) tablet turmeric 400 mg capsule 400 mg PO DAILY cap 04/27/19 08/25/20 omega-3 fatty acids 2 cap PO DAILY 12/27/19 08/25/20 psyllium husk 3.4 gram/5.4 gram 1 tsp PO DAILY gm 12/27/19 08/25/20 oral powder zinc 50 mg tablet 50 mg PO DAILY 04/28/20 08/25/20 diclofenac sodium 75 mg PO BID PRN 08/25/20 08/25/20 Previous Rx's Medication Instructions Recorded levothyroxine 150 mcg tablet 150 mcg PO DAILY #90 tab 12/22/19 losartan 100 mg tablet 100 mg PO DAILY #90 tab 01/04/20 triamterene 37.5 1 tab PO DAILY #90 tab 01/04/20 mg-hydrochlorothiazide 25 mg tablet potassium chloride 10 mEq 10 meq PO BID #180 tab 06/13/20 tablet,extended release Results & Data (ED) Vital Signs Vital Signs - 24 hr 08/25/20 19:56 08/25/20 20:32 08/25/20 20:35 Temperature 35.9 C L Temperature Source Temporal Artery Scan Pulse Rate 102 H 91 H Pulse Rate from SpO2 Sensor 91 H Respiratory Rate 18 19 Blood Pressure 160/109 H 168/94 H Blood Pressure Mean 126 118 Pulse Oximetry 98 97 99 Oxygen Delivery Method Room Air Room Air Sepsis Recent Fever Within 48 Hours No Sepsis New/Unexplained Change in Mental Status No Sepsis Action Taken by Nursing No Action Required 08/25/20 21:00 08/25/20 21:30 08/25/20 22:00 Temperature Temperature Source Pulse Rate 88 92 H 78 Pulse Rate from SpO2 Sensor 88 92 H 76 Respiratory Rate 19 19 23 Blood Pressure Blood Pressure Mean Pulse Oximetry 97 99 95 Oxygen Delivery Method Sepsis Recent Fever Within 48 Hours Sepsis New/Unexplained Change in Mental Status Sepsis Action Taken by Nursing 08/25/20 22:30 08/25/20 23:10 08/25/20 23:13 Temperature Temperature Source Pulse Rate 74 94 H 83 Pulse Rate from SpO2 Sensor 74 83 Respiratory Rate 18 16 15 Blood Pressure 127/105 H 166/95 H Blood Pressure Mean 112 118 Pulse Oximetry 97 99 Oxygen Delivery Method Sepsis Recent Fever Within 48 Hours Sepsis New/Unexplained Change in Mental Status Sepsis Action Taken by Nursing 08/25/20 23:30 08/25/20 23:31 02/06/21 00:00 Temperature Temperature Source Pulse Rate 82 80 80 Pulse Rate from SpO2 Sensor 79 79 80 Respiratory Rate 19 20 17 Blood Pressure 134/80 130/83 Blood Pressure Mean 98 98 Pulse Oximetry 96 97 96 Oxygen Delivery Method Room Air Sepsis Recent Fever Within 48 Hours Sepsis New/Unexplained Change in Mental Status Sepsis Action Taken by [facility] Medications Current Medication List: was personally reviewed by me Laboratory Data Attestation: I reviewed the patient's lab results. Result diagrams: 08/25/20 20:20 08/25/20 20:20 Lab Results 08/25/20 08/25/20 08/25/20 Range/Units 19:58 20:20 20:20 WBC 9.23 (4.8-10.8) K/uL RBC 5.25 (4.2-5.4) M/uL Hgb 16.4 H (12.0-16.0) g/dL Hct 46.0 (37-47) % MCV 87.6 (80-100) fL MCH 31.2 (25-34) pg MCHC 35.7 (32-36) g/dL RDW Std Deviation 44.1 (36.4-46.3) fL RDW Coeff of Fany 13.8 (11.5-14.5) % Plt Count 213 (130-400) K/uL MPV 12.1 H (7.4-10.4) fL Immature Gran % (Auto) 0.5 % Neut % (Auto) 52.2 % Lymph % (Auto) 40.7 % Johnson % (Auto) 4.2 % Eos % (Auto) 2.1 % Baso % (Auto) 0.3 % Neut # (Auto) 4.81 (1.4-6.5) K/uL Lymph # (Auto) 3.76 H (1.2-3.4) K/uL Johnson # (Auto) 0.39 (0.11-0.59) K/uL Eos # (Auto) 0.19 (0-0.5) K/uL Baso # (Auto) 0.03 (0-0.2) K/uL Immature Gran # (Auto) 0.05 H (0.00-0.02) K/uL VBG pH (7.36-7.41) VBG pCO2 (38-50) mmHg VBG pO2 mmHg VBG HCO3 mmol/L VBG O2 Saturation % VBG Base Excess mEq/L Barometric Pressure mm/Hg Sodium 129 L (136-145) mmol/L Potassium 3.3 L D (3.5-5.1) mmol/L Chloride 91 L (98-107) mmol/L Carbon Dioxide 18 L (21-32) mmol/L Anion Gap 20.0 H (3-11) BUN 36 H (7-18) mg/dl Creatinine 2.05 H (0.6-1.2) mg/dl Est Cr Clr Drug Dosing 35.9 ml/min Est GFR ( Amer) 30.0 Est GFR (Non-Af Amer) 25.9 BUN/Creatinine Ratio 17.8 (10-20) Glucose 645 H* (70-99) mg/dl POC Glucose > 600 H* (70-99) mg/dl Calcium 9.9 (8.5-10.1) mg/dl Magnesium 2.2 (1.8-2.4) mg/dl Total Bilirubin 0.7 (0.2-1) mg/dl AST 14 L (15-37) U/L ALT 34 (12-78) U/L Alkaline Phosphatase 217 H (45-117) U/L Troponin I < 0.015 (0-0.045) ng/ml Total Protein 7.2 (6.4-8.2) gm/dl Albumin 3.4 (3.4-5.0) gm/dl Globulin 3.8 (2.5-4.0) gm/dl Albumin/Globulin Ratio 0.9 (0.9-2) Beta-Hydroxybutyric Acd > 46.00 H (0.2-2.81) mg/dl TSH 0.883 (0.300-4.500) uIu/ml Urine Color Urine Appearance (Clear) Urine pH (4.5-7.5) Ur Specific [place] (1.000-1.030) Urine Protein (Negative) Urine Glucose (UA) (Negative) Urine Ketones (Negative) Urine Blood (Negative) Urine Nitrite (Negative) Urine Bilirubin (Negative) Urine Urobilinogen (Negative) Ur Leukocyte Esterase (Negative) COVID-19 Eval Order SARS-CoV-2, RNA, NAAT (NEGATIVE) 08/25/20 08/25/20 08/25/20 Range/Units 20:35 20:41 23:16 WBC (4.8-10.8) K/uL RBC (4.2-5.4) M/uL Hgb (12.0-16.0) g/dL Hct (37-47) % MCV (80-100) fL MCH (25-34) pg MCHC (32-36) g/dL RDW Std Deviation (36.4-46.3) fL RDW Coeff of Fany (11.5-14.5) % Plt Count (130-400) K/uL MPV (7.4-10.4) fL Immature Gran % (Auto) % Neut % (Auto) % Lymph % (Auto) % Johnson % (Auto) % Eos % (Auto) % Baso % (Auto) % Neut # (Auto) (1.4-6.5) K/uL Lymph # (Auto) (1.2-3.4) K/uL Johnson # (Auto) (0.11-0.59) K/uL Eos # (Auto) (0-0.5) K/uL Baso # (Auto) (0-0.2) K/uL Immature Gran # (Auto) (0.00-0.02) K/uL VBG pH 7.34 L (7.36-7.41) VBG pCO2 39 (38-50) mmHg VBG pO2 33 mmHg VBG HCO3 20 mmol/L VBG O2 Saturation 66.3 % VBG Base Excess -4.9 mEq/L Barometric Pressure 726.2 mm/Hg Sodium (136-145) mmol/L Potassium (3.5-5.1) mmol/L Chloride (98-107) mmol/L Carbon Dioxide (21-32) mmol/L Anion Gap (3-11) BUN (7-18) mg/dl Creatinine (0.6-1.2) mg/dl Est Cr Clr Drug Dosing ml/min Est GFR ( Amer) Est GFR (Non-Af Amer) BUN/Creatinine Ratio (10-20) Glucose (70-99) mg/dl POC Glucose (70-99) mg/dl Calcium (8.5-10.1) mg/dl Magnesium (1.8-2.4) mg/dl Total Bilirubin (0.2-1) mg/dl AST (15-37) U/L ALT (12-78) U/L Alkaline Phosphatase (45-117) U/L Troponin I (0-0.045) ng/ml Total Protein (6.4-8.2) gm/dl Albumin (3.4-5.0) gm/dl Globulin (2.5-4.0) gm/dl Albumin/Globulin Ratio (0.9-2) Beta-Hydroxybutyric Acd (0.2-2.81) mg/dl TSH (0.300-4.500) uIu/ml Urine Color Yellow Urine Appearance Clear (Clear) Urine pH 5.0 (4.5-7.5) Ur Specific [place] 1.032 H (1.000-1.030) Urine Protein Negative (Negative) Urine Glucose (UA) 3+ H (Negative) Urine Ketones 3+ H (Negative) Urine Blood Negative (Negative) Urine Nitrite Negative (Negative) Urine Bilirubin Negative (Negative) Urine Urobilinogen Negative (Negative) Ur Leukocyte Esterase Negative (Negative) COVID-19 Eval Order Covid19 [facility] SARS-CoV-2, RNA, NAAT (NEGATIVE) 08/25/20 08/25/20 Range/Units 23:16 23:25 WBC (4.8-10.8) K/uL RBC (4.2-5.4) M/uL Hgb (12.0-16.0) g/dL Hct (37-47) % MCV (80-100) fL MCH (25-34) pg MCHC (32-36) g/dL RDW Std Deviation (36.4-46.3) fL RDW Coeff of Fany (11.5-14.5) % Plt Count (130-400) K/uL MPV (7.4-10.4) fL Immature Gran % (Auto) % Neut % (Auto) % Lymph % (Auto) % Johnson % (Auto) % Eos % (Auto) % Baso % (Auto) % Neut # (Auto) (1.4-6.5) K/uL Lymph # (Auto) (1.2-3.4) K/uL Johnson # (Auto) (0.11-0.59) K/uL Eos # (Auto) (0-0.5) K/uL Baso # (Auto) (0-0.2) K/uL Immature Gran # (Auto) (0.00-0.02) K/uL VBG pH (7.36-7.41) VBG pCO2 (38-50) mmHg VBG pO2 mmHg VBG HCO3 mmol/L VBG O2 Saturation % VBG Base Excess mEq/L Barometric Pressure mm/Hg Sodium (136-145) mmol/L Potassium (3.5-5.1) mmol/L Chloride (98-107) mmol/L Carbon Dioxide (21-32) mmol/L Anion Gap (3-11) BUN (7-18) mg/dl Creatinine (0.6-1.2) mg/dl Est Cr Clr Drug Dosing ml/min Est GFR ( Amer) Est GFR (Non-Af Amer) BUN/Creatinine Ratio (10-20) Glucose (70-99) mg/dl POC Glucose > 600 H* (70-99) mg/dl Calcium (8.5-10.1) mg/dl Magnesium (1.8-2.4) mg/dl Total Bilirubin (0.2-1) mg/dl AST (15-37) U/L ALT (12-78) U/L Alkaline Phosphatase (45-117) U/L Troponin I (0-0.045) ng/ml Total Protein (6.4-8.2) gm/dl Albumin (3.4-5.0) gm/dl Globulin (2.5-4.0) gm/dl Albumin/Globulin Ratio (0.9-2) Beta-Hydroxybutyric Acd (0.2-2.81) mg/dl TSH (0.300-4.500) uIu/ml Urine Color Urine Appearance (Clear) Urine pH (4.5-7.5) Ur Specific [place] (1.000-1.030) Urine Protein (Negative) Urine Glucose (UA) (Negative) Urine Ketones (Negative) Urine Blood (Negative) Urine Nitrite (Negative) Urine Bilirubin (Negative) Urine Urobilinogen (Negative) Ur Leukocyte Esterase (Negative) COVID-19 Eval Order SARS-CoV-2, RNA, NAAT NEGATIVE (NEGATIVE) Administered Medications Discontinued Medications Sodium Chloride (Nss 1000ml) 2,000 mls @ 999 mls/hr IV .Q2H1M NERI Stop: 02/05/21 22:45 Last Infusion: 08/25/20 23:13 Dose: 0 mls/hr Documented by: [id number] Admin: 08/25/20 20:52 Dose: 999 mls/hr Documented by: [id number] Potassium Chloride (K Vic / Wtr) 10 meq in 100 mls @ 100 mls/hr IV ONE ONE Stop: 08/25/20 23:16 Last Infusion: 08/25/20 23:27 Dose: 0 mls/hr Documented by: [id number] Admin: 08/25/20 22:28 Dose: 100 mls/hr Documented by: [id number] Ondansetron HCl (Ondansetron Inj 2 Mg/Ml 2 Ml Vial) 4 mg IV NOW STA Stop: 08/25/20 20:33 Last Admin: 08/25/20 21:18 Dose: Not Given Documented by: [id number] Imaging Data Radiologist's Impression: XR chest 1V portable HISTORY: 60 years-old Female weakness acute weakness COMPARISON: None TECHNIQUE: Portable AP view of the chest FINDINGS: Cardiomediastinal and hilar silhouettes are within normal limits. No pneumothorax, large pleural effusion or overt pulmonary edema. Mild blunting of the left costophrenic angle. Mild left hemidiaphragmatic elevation. Degenerative changes of the shoulders and spine. IMPRESSION: Mild blunting of the left costophrenic angle suggestive of atelectasis versus trace effusion.. Discharge Plan Visit Data Chief Complaint: Hyperglycemia Stated Complaint: high blood sugar, 806 ED Provider: Altaf Galvan Discharge Problem: DKA (diabetic ketoacidoses), SEMAJ (acute kidney injury), Acute dehydration, Hypokalemia Patient Disposition: Admitted As Inpatient Condition: Fair Forms Stand Alone Forms: My [facility] Prescriptions Prescriptions: No Action levothyroxine 150 mcg tablet 150 mcg PO DAILY Qty: 90 RF: 3 losartan 100 mg tablet 100 mg PO DAILY Qty: 90 RF: 3 triamterene-hydrochlorothiazid 37.5-25 mg tablet 1 tab PO DAILY Qty: 90 RF: 3 potassium chloride 10 mEq tablet extended release 10 meq PO BID Qty: 180 RF: 1 omega-3 fatty acids 2 cap PO DAILY RF: 0 zinc 50 mg tablet 50 mg PO DAILY RF: 0 multivitamin [Daily Multi-Vitamin] tablet 1 tab PO DAILY RF: 0 esomeprazole magnesium [Nexium] 20 mg capsule,delayed release(DR/EC) 20 mg PO DAILY RF: 0 aspirin 81 mg tablet 81 mg PO DAILY RF: 0 magnesium oxide 400 mg (241.3 mg magnesium) tablet 400 mg PO DAILY Qty: 30 RF: 0 oregano oil 1,500 mg capsule 1,500 mg PO DAILY RF: 0 horse chestnut 300 mg tablet 300 mg PO DAILY RF: 0 cholecalciferol (vitamin D3) 5,000 unit tablet 5,000 units PO DAILY RF: 0 Lacto.acidophilus-Bif.animalis 31 billion cell capsule 1 cap PO DAILY RF: 0 turmeric 400 mg capsule 400 mg PO DAILY RF: 0 Metamucil 3.4 gram/5.4 gram powder 1 tsp PO DAILY RF: 0 erythromycin 5 mg/gram (0.5 %) ointment 1 applic OP UD PRN (Reason: ..) RF: 0 albuterol sulfate 90 mcg/actuation HFA aerosol inhaler 2 puffs inhalation Q4H PRN (Reason: Shortness Of Breath Or Wheezing) Qty: 1 RF: 0 diclofenac sodium 75 mg tablet,delayed release (DR/EC) 75 mg PO BID PRN (Reason: Pain) RF: 0 Referrals Referrals: Chelsie Cornell MD [Primary Care Provider] - Discharge Problem: DKA (diabetic ketoacidoses) Qualifiers: Diabetes mellitus type: type 1 Diabetes mellitus complication detail: without coma Qualified Code(s): E10.10 - Type 1 diabetes mellitus with ketoacidosis without coma
[2020-08-25 20:44] LABS: Basophils # (auto) 0.03 K/uL (0-0.2); Basophils % (auto) 0.3 %; Eosinophils # (auto) 0.19 K/uL (0-0.5); Eosinophils % (auto) 2.1 %; Hemoglobin 16.4 g/dL (12.0-16.0); Immature Granulocytes # (auto) 0.05 K/uL (0.00-0.02); Immature Granulocytes % (auto) 0.5 %; Lymphocytes # (auto) 3.76 K/uL (1.2-3.4); Lymphocytes % (auto) 40.7 %; Mean Corpuscular Hemoglobin 31.2 pg (25-34); Mean Corpuscular Hgb Conc 35.7 g/dL (32-36); Mean Corpuscular Volume 87.6 fL (80-100); Mean Platelet Volume 12.1 fL (7.4-10.4); Monocytes # (auto) 0.39 K/uL (0.11-0.59); Monocytes % (auto) 4.2 %; Neutrophils # (auto) 4.81 K/uL (1.4-6.5); Neutrophils % (auto) 52.2 %; Platelet Count 213 K/uL (130-400); RDW Coefficient of Variation 13.8 % (11.5-14.5); RDW Standard Deviation 44.1 fL (36.4-46.3); Red Blood Count 5.25 M/uL (4.2-5.4); White Blood Count 9.23 K/uL (4.8-10.8)
[2020-08-25] MEDS ORDERED: SODIUM CHLORIDE 0.9% 1000ML 2,000 ML IV SCH (20:45)
[2020-08-25 20:53] LABS: Appearance Urine Clear (Clear); Bilirubin Urine Negative (Negative); Blood Urine Negative (Negative); Color Urine Yellow; Glucose Urine UA 3+ (Negative); Ketones Urine 3+ (Negative); Leukocyte Esterase Urine Negative (Negative); Nitrite Urine Negative (Negative); Protein Urine Negative (Negative); Specific Gravity Urine 1.032 (1.000-1.030); Urobilinogen Urine Negative (Negative)
[2020-08-25 20:55] LABS: Base Excess VBG -4.9 mEq/L; Oxygen Saturation VBG 66.3 %; pH VBG 7.34 (7.36-7.41)
--- NOTE | 2020-08-25 21:06 | XRay Report ---
XR chest 1V portable HISTORY: 60 years-old Female weakness acute weakness COMPARISON: None TECHNIQUE: Portable AP view of the chest FINDINGS: Cardiomediastinal and hilar silhouettes are within normal limits. No pneumothorax, large pleural effu shyla or overt pulmonary edema. Mild blunting of the left costophrenic angle. Mild left hemidiaphragma tic elevation. Degenerative changes of the shoulders and spine. IMPRESSION: Mild blunting of the left costophrenic angle suggestive of atelectasis versus trace effus ion.. ACT 112: Negative or not required by law. The above report was generated using voice recognition software. It may contain grammatical, syntax o r spelling errors. Electronically signed by: Taco Caro M.D. 08/25/2020 9:04 PM
[2020-08-25 21:43] LABS: Alanine Aminotransferase 34 U/L (12-78); Albumin Globulin Ratio 0.9 (0.9-2); Albumin Level 3.4 gm/dl (3.4-5.0); Aspartate Aminotransferase 14 U/L (15-37); BUN Creatinine Ratio 17.8 (10-20); Bilirubin,Total 0.7 mg/dl (0.2-1); Blood Urea Nitrogen 36 mg/dl (7-18); Calcium 9.9 mg/dl (8.5-10.1); Carbon Dioxide 18 mmol/L (21-32); Chloride 91 mmol/L (98-107); Creatinine Clr Calc Pharmacy 35.9 ml/min; Est GFR (Non-African American) 25.9; Globulin 3.8 gm/dl (2.5-4.0); Glucose 645 mg/dl (70-99); Magnesium 2.2 mg/dl (1.8-2.4); Sodium 129 mmol/L (136-145); Total Protein 7.2 gm/dl (6.4-8.2)
[2020-08-25 21:44] LABS: Potassium 3.3 mmol/L (3.5-5.1)
[2020-08-25 21:56] LABS: Alkaline Phosphatase 217 U/L (45-117); Thyroid Stimulating Hormone 0.883 uIu/ml (0.300-4.500); Troponin I < 0.015 ng/ml (0-0.045)
[2020-08-25 22:14] LABS: Beta-Hydroxybutyrate > 46.00 mg/dl (0.2-2.81)
[2020-08-25] MEDS ORDERED: POTASSIUM CHLORIDE / WTR 10 MEQ/100 ML PLCT IV ONE (22:17)
[2020-08-26] MEDS ORDERED: HHS GOAL RANGE 250-350 mg/dl ONE (01:05)
[2020-08-26] MEDS ORDERED: PHARMACY GLYCEMIC MGMT CONSULT STA (01:05)
[2020-08-26] MEDS ORDERED: NovoLIN-R INSULIN PER UNIT CHARGE IV STA (01:05)
--- NOTE | 2020-08-26 01:13 | History & Physical Report ---
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 Hyperosmolar Hyperglycemic State -On admission with Glucose 806, Gap 18, Na 129, Cl 87, K 4.3, Beta- Hydroxybutyric Acid 53.14 -Mild Acidosis noted on VBG -In ED received 2L NSS, IV potassium, and Zofran -Labs q4h -Started on high rate fluids NSS +20meq KCl 250ml/hr -Will give 10u Regular insulin instead of utilizing drip as suspect patient will respond rapidly -Replete electrolytes PRN -Pharmacy consulted for assistance in management -Plan to transition to Novolog subq once sugars reach ~300's Acute on chronic kidney injury -Base Cr ~1.15 -Elevated at 2.01 on admission, suspect hypovolemia -Hold Losartan and HCTZ/Triamterene Asthma -Albuterol PRN Hypothyroidism -Continue home Levothyroxine 150mcg QD Hypertension -Hold Losartan -Hold HCTZ/Triamterene GERD -Continue home Protonix 40mg QD Dispo: FEN: NPO, NSS +20meq KCl 250ml/hr DVT: Heparin TID Code: Full (2) Asthma: (3) HTN (hypertension): (4) Hyperglycemia: (5) Hypothyroidism: History of Present Illness Chief Complaint: Fatigue Primary Care Provider: Chelsie Cornell MD Patient is a 60 year old female with PMHx 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 Patient notes that she had been started on Metformin initially in January of 2020 for insulin resistance, and that her dose was increased this past June to 1000mg daily. She stopped taking it 1 week ago due to having abdominal side effects and has noticed that since stopping she has had increased thirst and subsequent increased urination due to taking in more PO. She also notes that the past week she has felt over all increased fatigue and weakness. Denies any specific limb or area of weakness, but that it is very generalized. She has also had a lack of appetite this week. Denies any fever, chills, SOB, chest pain, abdominal pain, nausea, vomiting, diarrhea. Med Hx - Wilbur Palsy, Acoustic Neuroma, CKD Stage III, Asthma, Hypothyroidism, Hypertension, GERD, DM2 Surg Hx - Multiple facial surgeries regarding her history of Wilbur Palsy Social Hx - No tobacco or illicit drug use. Quit alcohol 3 months ago, was having 2-3 shots of liquor weekly. Fam Hx - No family hx of DM. Mother Afib, CHF, Hypothyroidism. Brother CHF, Hypothyroidism. Sister Aortic Aneurysm. Allergies Allergy/AdvReac Type Severity Reaction Status Date / Time amoxicillin Allergy Intermediate FEET Verified 08/25/20 22:49 SWELLING, THYROID ABNORMALATIES clavulanic acid Allergy Intermediate FEET Verified 08/25/20 22:49 SWELLING, THYROID ABNORMALATIES clindamycin Allergy Intermediate RASH Verified 08/25/20 22:49 Home Medications Medication Instructions Recorded Confirmed Type esomeprazole magnesium 20 mg 20 mg PO DAILY cap 02/25/19 08/25/20 History capsule,delayed release multivitamin 1 tab PO DAILY 02/25/19 08/25/20 History albuterol sulfate 90 mcg/actuation 2 puffs INHALATION Q4H PRN #1 gm 03/30/19 08/25/20 History aerosol inhaler aspirin 81 mg tablet 81 mg PO DAILY tab 03/30/19 08/25/20 History erythromycin 5 mg/gram (0.5 %) eye 1 applic OP UD PRN gm 03/30/19 08/25/20 History ointment horse chestnut 300 mg tablet 300 mg PO DAILY tab 03/30/19 08/25/20 History magnesium oxide 400 mg (241.3 mg 400 mg PO DAILY #30 tab 03/30/19 08/25/20 History magnesium) tablet oregano oil 1,500 mg capsule 1,500 mg PO DAILY cap 03/30/19 08/25/20 History Lactobacillus 1 cap PO DAILY cap 04/27/19 08/25/20 History acidophilus-Bifidobac.animalis 31 billion cell capsule cholecalciferol (vitamin D3) 125 5,000 units PO DAILY tab 04/27/19 08/25/20 History mcg (5,000 unit) tablet turmeric 400 mg capsule 400 mg PO DAILY cap 04/27/19 08/25/20 History levothyroxine 150 mcg tablet 150 mcg PO DAILY #90 tab 12/22/19 08/25/20 Rx omega-3 fatty acids 2 cap PO DAILY 12/27/19 08/25/20 History psyllium husk 3.4 gram/5.4 gram 1 tsp PO DAILY gm 12/27/19 08/25/20 History oral powder losartan 100 mg tablet 100 mg PO DAILY #90 tab 01/04/20 08/25/20 Rx triamterene 37.5 1 tab PO DAILY #90 tab 01/04/20 08/25/20 Rx mg-hydrochlorothiazide 25 mg tablet zinc 50 mg tablet 50 mg PO DAILY 04/28/20 08/25/20 History potassium chloride 10 mEq 10 meq PO BID #180 tab 06/13/20 08/25/20 Rx tablet,extended release diclofenac sodium 75 mg PO BID PRN 08/25/20 08/25/20 History Past Med/Surg History Medical History Asthma Chronic pain of both knees Heartburn HTN (hypertension) Leg pain, right No pertinent past medical history Postmenopausal bleeding Stage 3 chronic kidney disease Uterine prolapse Venous insufficiency Surgical History H/O: hysterectomy History of facial surgery Family History Father Cardiac disorder Colon cancer Myocardial infarction Heart disease Mother Atrial fibrillation Thyroid disease Family/Other Hypertension Denies family history of Ovarian cancer Prostate cancer Breast cancer Social History Smoking Status: Never smoker Second Hand Exposure: No; Hx Alcohol Use: Yes Alcohol type: hard liquor Alcohol Intake Frequency: 2-3 x/Week Hx Substance Use: No Preferred Language: Yoruba Communication Ability: Effective Visual Impairment: No Limitations Hearing Ability: Simplex Operator Required: No Beliefs That Will Affect Care: None marital status: Current Living Situation: Spouse current occupational status: retired Feels Safe at Home: Yes Safety Concerns: Feels Safe At This Time Childhood Exposure to Second-Hand Smoke: No Dental Care, Regularly: Yes Physical Activity Frequency: 1-2 Times per Week Seatbelt Use: always Sunscreen Use: Yes Assistive Devices: Glasses Review of Systems Review of Systems: All systems reviewed & are unremarkable except as noted in Subjective Physical Exam Constitutional: WD/WN, vitals as above Eyes: PERRL, conjunctivae normal, anicteric sclerae Slight R eye droop ENMT: Nose: + face asymmetric (R sided facial paralysis, 2/2 bells palsy ) Respiratory: normal respiratory effort, lungs clear to auscultation Cardiovascular: Rate/Rhythm: regular rate and regular rhythm Heart Sounds: no murmur Extremities: + edema (+1) Gastrointestinal (Abdomen): normal bowel sounds, soft, nontender, no hepat osplenomegaly Skin: no rashes, warm and dry Psychiatric: A+Ox3, euthymic affect Results & Data Results & Data ([facility]) Vital Signs (Past 12 Hours) Vital Signs Temp Pulse Resp BP Pulse Ox 08/26/20 00:00 80 17 130/83 96 08/25/20 23:31 80 20 134/80 97 08/25/20 23:30 82 19 96 08/25/20 23:13 83 15 166/95 H 99 08/25/20 23:10 94 H 16 08/25/20 22:30 74 18 127/105 H 97 08/25/20 22:00 78 23 95 08/25/20 21:30 92 H 19 99 08/25/20 21:00 88 19 97 08/25/20 20:35 91 H 19 168/94 H 99 08/25/20 20:32 97 08/25/20 19:56 35.9 C L 102 H 18 160/109 H 98 Code Status & VTE Plan VTE Prophylaxis Plan VTE Prophylaxis will be ordered: Yes Supervising Physician Co-Signing Physician Notes Attending addendum: I have physically seen this patient, have supervised the medical residents activities, and agree with the H&P unless as otherwise noted. Assessment and Plan: DKA- Received 2 L normal saline in the ED Continue rehydration with normal saline plus KCl 20 mEq at 1050 mils per hour Will give serially regular insulin 10 units IV overnight, and checking BMP magnesium and phosphorus levels every 4 hours Acute kidney injury on chronic kidney disease- Creatinine 2.1 upon admission, with baseline approximately 1.15. Hold losartan and triamterene/HCTZ IV fluid rehydration as noted above To get BMP and magnesium level in the a.m. Hypothyroidism- Continue levothyroxine sodium 150 mcg daily Remainder of orders and notations as noted Resident Activity Tracking Resident Involvement: Resident Care Provided Care Provided: Adult [facility]
[2020-08-26] MEDS: POTASSIUM CHLORIDE 20 MEQ in SODIUM CHLORIDE 0.9% 1000ML 1,000 ML IV SCH ×6 (01:15→21:04)
[2020-08-26] MEDS ORDERED: PHARMACY GLYCEMIC MGMT CONSULT PRN (01:19)
[2020-08-26] MEDS ORDERED: ERYTHROMYCIN OP OINT 5 MG/GM 3.5 GM TUBE OP PRN (02:29)
[2020-08-26] MEDS ORDERED: ALBUTEROL HFA 8 GM INHALER INH PRN (02:29)
[2020-08-26] MEDS ORDERED: ONDANSETRON INJ 2 MG/ML 2 ML VIAL IV PRN (02:29)
[2020-08-26] MEDS ORDERED: DC ALL PREVIOUSLY ORDERED DIABETES MEDS ONE (02:29)
[2020-08-26 02:53] LABS: Beta-Hydroxybutyrate 73.56 mg/dl (0.2-2.81)
[2020-08-26 03:49] LABS: BUN Creatinine Ratio 19.4 (10-20); Beta-Hydroxybutyrate 56.36 mg/dl (0.2-2.81); Calcium 8.8 mg/dl (8.5-10.1); Est GFR (African American) 39.6; Est GFR (Non-African American) 34.1; Magnesium 2.1 mg/dl (1.8-2.4); Phosphorus 1.5 mg/dl (2.5-4.9); Potassium 3.1 mmol/L (3.5-5.1)
[2020-08-26] MEDS ORDERED: INSULIN ASPART 100 UNITS/ML 3 ML PEN SC SCH (04:00)
[2020-08-26] MEDS: POT PHOSPHATE MONOBASIC W/ SOD TAB PO SCH ×2 (05:03→08:07)
[2020-08-26] MEDS: LEVOTHYROXINE SODIUM 150 MCG TABLET PO SCH (05:07)
[2020-08-26 06:39] LABS: Estimated Average Glucose 329 mg/dl; Hemoglobin A1C 13.1 % (4.5-5.6)
[2020-08-26 06:53] LABS: Hematocrit (blood only) 41.4 % (37-47); Hemoglobin 14.8 g/dL (12.0-16.0); Mean Corpuscular Hemoglobin 30.9 pg (25-34); Mean Corpuscular Hgb Conc 35.7 g/dL (32-36); Mean Corpuscular Volume 86.4 fL (80-100); Mean Platelet Volume 11.7 fL (7.4-10.4); Platelet Count 194 K/uL (130-400); RDW Coefficient of Variation 13.5 % (11.5-14.5); RDW Standard Deviation 42.6 fL (36.4-46.3); Red Blood Count 4.79 M/uL (4.2-5.4); White Blood Count 9.89 K/uL (4.8-10.8)
[2020-08-26 07:19] LABS: BUN Creatinine Ratio 19.2 (10-20); Calcium 7.9 mg/dl (8.5-10.1); Creatinine Clr Calc Pharmacy 49.6 ml/min; Est GFR (African American) 44.5; Est GFR (Non-African American) 38.4; Magnesium 2.2 mg/dl (1.8-2.4); Phosphorus 2.9 mg/dl (2.5-4.9); Potassium 3.2 mmol/L (3.5-5.1)
[2020-08-26 07:45] LABS: Beta-Hydroxybutyrate 73.07 mg/dl (0.2-2.81)
--- NOTE | 2020-08-26 07:50 | Hospitalist Progress Note ---
Date of Service August 26, 2020 Assessment & Plan (1) Hyperosmolar hyperglycemic state (HHS): Debbie Kothari is a 60 y/o F w/ hx of DM2, R sided Donaldson Palsy secondary to Acoustic Neuroma 1990, CKD Stage III, Asthma, Hypothyroidism, Hypertension, GERD who presented w/ 1 wk hx of polydipsia (in context of skipping metformin x 1 wk and chronic intermittent fasting) and was found to be hyperglycemic at 806 and ketotic. Clinically stable, no altered mentation. Hyperosmolar Hyperglycemic State -A1C 7.6 06/2020 vs 13.1 this admission, likely 2/2 lifestyle/diet. stopping of metformin x 1 week likely only partially contributing -On admission with Glucose 806, Gap 18, Na 129, Cl 87, K 4.3, Beta- Hydroxybutyric Acid 53.14. Mild Acidosis 7.34 on VBG -In ED received 2L NSS, IV potassium, and Zofran. cxr and ecg (nonspecific ST-T changes, no chest pain) likely noncontributing -On admission: Started on high rate fluids NSS +20meq KCl 250ml/hr -On admission: Regular insulin instead of utilizing drip as suspect patient will respond rapidly -Plan to transition to Novolog subq once sugars reach ~300's -Pharmacy consulted for assistance in management -compositor apprentice consulted -08/26/20 q4h labs -> qam labs. Replete electrolytes PRN -08/26/20 pharmacy inquired about 10am labs slight increase in anion gap, worsened electrolyte depletion, and increase in BHB (56.36->73.07). - primary team provided reassurance. patient clinically well and shifts likely 2/2 existing HHS state. If acidosis continues to worsen, will increase hydration, not increasing insulin. Acute on chronic kidney injury, improving -Baseline Cr ~1.1 CKD3 -Elevated at 2.01 on admission, suspect hypovolemia. 2.01->1.63->1.48 (08/26/20) -Hold Losartan and HCTZ/Triamterene Hypokalemia - 08/26/20 3.0, ordered repletion, will follow labs Hypocalcemia - 08/26/20 corrected Ca 8.0, ordered repletion, will follow labs Hypomagnesemia - 08/26/20 1.7, ordered repletion, will follow labs Hypophosphatemia - 08/26/20 1.5, ordered IV repletion, will follow labs Asthma -Albuterol PRN Hypothyroidism -Continue home Levothyroxine 150mcg QD Hypertension -Hold Losartan -Hold HCTZ/Triamterene GERD -Continue home Protonix 40mg QD FEN/GI: DM2 diet (advanced from NPO 08/26/20), NSS +20meq KCl 250ml/hr DVT: Heparin TID Code: Full Dispo: med surg w/ tele. anticipated 08/27/20+ for further management of HHS state (2) Asthma: (3) HTN (hypertension): (4) Hyperglycemia: (5) Hypothyroidism: (6) Hypokalemia: (7) Hypophosphatemia: (8) Hypocalcemia: (9) Hypomagnesemia: Admission and Anticipated Discharge Date Admission Date: August 26, 2020 Supervising Physician Co-Signing Physician Notes I personally examined the patient and verified all go points of history and exam, discussed case, and agree with decision making with Dr Olivia. Feeling better. Notes actually that she is peeing a lot less now that her sugars are down. Is hungry. In discussion of lifestyle, she does not do much deliberate exercise lately, notes that last year whenever it was nicer weather arreguin she and her hiked a lot. She does have an exercise bike but she has yet to really get into the habit of using it. On diet recall she notes mostly eating things like fruit and cottage cheese or apples and peanut butter. With very little snacking and nothing that she describes as a true meal. Later at the end of the discussion she makes very oblique references to things like bagels or sweets. She does not check sugars. She does not want to go back on Metformin. Vitals noted, in general she is awake and alert pleasant no distress. HEENT n ormocephalic atraumatic mucous membranes moist. Breathing unlabored no accessory muscle use good effort. Skin shows no rashes no pallor or icterus. Neuro shows cranial nerves II through XII be grossly intact gross motor and sensory intact. Hyperglycemic dehydration with acute renal failure on admissiondoing much better. Continue insulin and fluids. Continue to follow labs. Hopefully home in the next day or so. Educated extensively on type 2 diabetes physiology, treatmentespecially towards lifestyle, and the critical role of lifestyle and control of this disease process. Given that there was not a clear offender of simple/starchy/sugary carbs in her diet recall, I recommended 1 to 2-hour postprandial glucose monitoring so that she can start to identify what is causing her to be hyperglycemic and start to avoid that. We had an overall generic discussion of insulin resistance and what types of lifestyles worsen/perpetuated versus what improves it. We also discussed that in a perfect world she would have 20 to 30 minutes of light cardiovascular exercise a day and discussed few strategies of how to go about that. Improving, otherwise as above. Subjective Currently, feels pretty good. No fatigue (reason she stopped the metformin). Still feels thirsty. Some blurry vision worsening since 1wk or more, somewhat better today. No nausea/vomiting, abdominal sxs, or decreased urination. No recent change in diet: 1 big meal a day, intermittent fasting x 1 year. Has been attempting to lose weight on and off, w/ 20 lb. weight loss in 2 months w/o weight loss medications. Diet consists of popcorn, cottage cheese, potato chips, fruit, potato soup, 1 can of diet soda/day (has increased to 2-3 after increased thirst). Review of Systems Review of Systems: Constitutional: Denies fever, chills Eyes: See HPI Cardiovascular: Denies chest pain, palpitations Respiratory: Denies shortness of breath Gastrointestinal: Denies abdominal pain, nausea, vomiting, constipation, diarrhea Genitourinary: Denies urinary symptoms including dysuria Musculoskeletal: Denies weakness, muscle aches/pain, joint aches/pain Neurological: Denies headache, numbness, tingling, focal weakness Physical Exam Physical Exam: General: Grossly A&O. NAD. Cooperative. HEENT: Atraumatic, normocephalic. Mucous membranes a little dry. Pulm: CTAB. -wheezes, -rales, -rhonchi. No respiratory distress. Cardiac: RRR, -mrg. Legs appear puffy, but no pitting edema. Abdominal: Nontender, nondistended, soft. Results & Data Results & Data ([facility]) Vital Signs (Past 12 Hours) Vital Signs Temp Pulse Pulse Resp BP BP Pulse Ox 08/26/20 07:22 82 08/26/20 03:30 132/82 08/26/20 02:54 36.8 C 102 H 16 151/96 H 96 08/26/20 02:00 93 H 18 96/74 L 96 08/26/20 01:30 91 H 22 115/74 96 08/26/20 01:01 85 18 113/94 97 08/26/20 01:00 84 18 96 08/26/20 00:30 85 21 140/76 96 08/26/20 00:00 80 17 130/83 96 08/25/20 23:31 80 20 134/80 97 08/25/20 23:30 82 19 96 08/25/20 23:13 83 15 166/95 H 99 08/25/20 23:10 94 H 16 08/25/20 22:30 74 18 127/105 H 97 08/25/20 22:00 78 23 95 08/25/20 21:30 92 H 19 99 08/25/20 21:00 88 19 97 08/25/20 20:35 91 H 19 168/94 H 99 08/25/20 20:32 97 08/25/20 19:56 35.9 C L 102 H 18 160/109 H 98 Resident Activity Tracking Resident Involvement: Resident Care Provided Care Provided: Adult Hospital Medicine
[2020-08-26] MEDS: CHOLECALCIFEROL 1,000 UNITS 25 MCG TAB PO SCH (08:06)
[2020-08-26] MEDS: INSULIN ASPART 100 UNITS/ML 3 ML PEN SC SCH ×6 (08:07→16:59)
[2020-08-26] MEDS: PSYLLIUM 58.6% POWDER PACKET PO SCH (08:07)
[2020-08-26] MEDS: PANTOprazole 40 MG TAB PO SCH (08:07)
[2020-08-26] MEDS: ASPIRIN 81 MG ECTAB PO SCH (08:07)
[2020-08-26] MEDS: HEPARIN SOD 5,000 UNIT/0.5 ML VIAL SQ SCH ×3 (08:14→21:22)
[2020-08-26] MEDS ORDERED: INSULIN GLARGINE SOLOSTAR 100 UNITS/ML 3 ML PEN SC ONE (09:00)
[2020-08-26] MEDS ORDERED: POTASSIUM CHLORIDE CRTAB 20 MEQ TABCR PO STA ×2 (09:51→19:47)
--- NOTE | 2020-08-26 10:06 | Pharmacy Report ---
Glycemic Control Consultation - Date of Service August 26, 2020 - Scope Scope: Glycemic Pharmacist consulted for glycemic control and to write orders per [facility] inpatient glycemic control protocol. - Objective Weight: 113.2 kg Accuchecks BSG (last 24hrs): 08/25/20 08/25/20 08/25/20 19:58 20:20 23:25 Glucose 645 H* POC Glucose > 600 H* > 600 H* 08/26/20 08/26/20 08/26/20 01:20 02:34 02:36 Glucose 445 H* POC Glucose 327 H* 325 H* 08/26/20 08/26/20 08/26/20 02:45 03:32 03:34 Glucose 334 H* POC Glucose 330 H* 326 H* 08/26/20 08/26/20 06:45 08:03 Glucose 316 H* POC Glucose 356 H* Laboratory Data (last 24hrs): 08/25/20 08/26/20 08/26/20 20:20 01:20 02:45 Potassium 3.3 L D 3.1 L Carbon Dioxide 18 L 18 L Anion Gap 20.0 H 17.0 H Creatinine 2.05 H 1.63 H D Est Cr Clr Drug Dosing 35.9 45.0 Beta-Hydroxybutyric Acd > 46.00 H 73.56 H 56.36 H 08/26/20 06:45 Potassium 3.2 L Carbon Dioxide 20 L Anion Gap 14.0 H Creatinine 1.48 H Est Cr Clr Drug Dosing 49.6 Beta-Hydroxybutyric Acd 73.07 H HbA1c: Hemoglobin A1c 13.1 % (4.5-5.6) H 08/26/20 02:45 - Recent Pertinent Medications Outpatient Anti-diabetic Regimen: * metformin (stopped 1 week prior) * A1c = 13.1 % 08/26/20 The patient is currently receiving: * Basal insulin: Lantus -- units every -- hours * Correctional Insulin: Novolog Correction per scale ACHS Goal Range: Low 250 mg/dL - High 350 mg/dL Correction Factor: 15 mg/dL/unit * Prandial insulin: Per carb ratio of 1 unit per 5 grams CHO consumed * Oral Agents: Risk Factors for Insulin Resistance: * IVF: NS + 20 KCL @ 250 mL/hr * Diet: NPO - Assessment & Plan Assessment & Plan: ASSESSMENT: * Ms Kothari is a 60 y/o F with a PMH of uncontrolled T2DM who presents with severe hyperglycemia and HHS. Patient currently receiving hydration with NS + 20KCl @ 250 mL/hr. She is NPO. * Blood sugars have trended downwards overnight to ~350 mg/dL. Electrolytes are still out of goal range with anion gap of 14 and CO2 of 20. * Due to patient's extreme hyperglycemia plus hypokalemia, will start with SQ insulin 0.1 units/kg every 2 hours. This is utilized to prevent insulin infusion. Stop when BSG < 200 mg/dL. Will then start Novolog CF 15 CR 5 (weight-based stress of 3) Q4 hours) * Will give Lantus 30 units x 1 (weight-based stress of 1-2). Lower Lantus dose given due to NPO status; also expect Novolog to help bring BSG down successfully. PLAN FOR INPATIENT GLYCEMIC CONTROL: * Holding outpatient oral diabetes medications * Basal insulin * Lantus 30 units SQ x 1 * Bolus insulin -- Novolog 10 units SQ q2 hours until BSG < 200 mg/dL * Please note that the plan above was derived based on current level of insulin resistance and hospital stress. These recommendations are appropriate for inpatient admission only. Plan of care upon discharge will need to be reassessed to avoid potential outpatient hypo/hyperglycemia. Thank you.
[2020-08-26 10:59] LABS: BUN Creatinine Ratio 17.6 (10-20); Calcium 7.9 mg/dl (8.5-10.1); Creatinine Clr Calc Pharmacy 52.4 ml/min; Est GFR (African American) 47.5; Magnesium 1.8 mg/dl (1.8-2.4); Phosphorus 2.4 mg/dl (2.5-4.9)
[2020-08-26] MEDS ORDERED: DEXTROSE 50% 50 ML SYRINGE IV PRN (12:15)
[2020-08-26] MEDS ORDERED: GLUCOSE 40% GEL 15 GM TUBE PO PRN (12:15)
[2020-08-26] MEDS ORDERED: GLUCOSE 10 TABS/TUBE PO PRN (12:15)
[2020-08-26] MEDS ORDERED: CARBOHYDRATES FOR HYPOGLYCEMIA PO PRN (12:15)
[2020-08-26] MEDS ORDERED: GLUCAGON FOR INJ 1 MG VIAL IM PRN (12:15)
[2020-08-26 15:18] LABS: BUN Creatinine Ratio 18.2 (10-20); Calcium 7.7 mg/dl (8.5-10.1); Est GFR (African American) 51.5; Est GFR (Non-African American) 44.5; Magnesium 1.9 mg/dl (1.8-2.4); Phosphorus 1.9 mg/dl (2.5-4.9); Potassium 3.1 mmol/L (3.5-5.1)
[2020-08-26 19:21] LABS: BUN Creatinine Ratio 16.3 (10-20); Calcium 7.5 mg/dl (8.5-10.1); Creatinine Clr Calc Pharmacy 58.2 ml/min; Est GFR (Non-African American) 46.6; Magnesium 1.7 mg/dl (1.8-2.4)
[2020-08-26 19:37] LABS: Phosphorus 1.5 mg/dl (2.5-4.9)
[2020-08-26] MEDS ORDERED: MAGNESIUM OXIDE 400 MG TAB PO ONE (19:40)
[2020-08-26] MEDS ORDERED: CALCIUM CARBONATE 1,250 MG/5 ML UDC PO ONE (19:42)
[2020-08-26] MEDS ORDERED: POTASSIUM PHOS 3 MMOL/1 ML INFUSION IV STA ×2 (19:44→20:10)
[2020-08-26] MEDS ORDERED: POTASSIUM PHOSPHATE 21 MMOL in SODIUM CHLORIDE 0.9% 500 ML IV ONE (20:00)
[2020-08-26] MEDS ORDERED: POTASSIUM PHOSPHATE 24 MMOL in SODIUM CHLORIDE 0.9% 500 ML IV ONE (20:45)
--- NOTE | 2020-08-26 22:53 | Billing Data ---
Date of Service August 26, 2020 Coding Level of Care Code 73529 Initial Inpt Care Lvl 3
[2020-08-27] MEDS: INSULIN ASPART 100 UNITS/ML 3 ML PEN SC SCH ×5 (00:04→12:38)
[2020-08-27] MEDS: POTASSIUM CHLORIDE 20 MEQ in SODIUM CHLORIDE 0.9% 1000ML 1,000 ML IV SCH ×3 (01:04→09:31)
[2020-08-27] MEDS: LEVOTHYROXINE SODIUM 150 MCG TABLET PO SCH (05:12)
[2020-08-27] MEDS: HEPARIN SOD 5,000 UNIT/0.5 ML VIAL SQ SCH ×2 (05:13→12:38)
[2020-08-27 07:21] LABS: Albumin Globulin Ratio 0.9 (0.9-2); Albumin Level 2.5 gm/dl (3.4-5.0); BUN Creatinine Ratio 14.7 (10-20); Bilirubin,Total 0.4 mg/dl (0.2-1); Calcium 7.8 mg/dl (8.5-10.1); Creatinine Clr Calc Pharmacy 71.4 ml/min; Est GFR (African American) 66.6; Est GFR (Non-African American) 57.4; Globulin 2.9 gm/dl (2.5-4.0); Magnesium 1.8 mg/dl (1.8-2.4); Phosphorus 2.1 mg/dl (2.5-4.9); Potassium 3.6 mmol/L (3.5-5.1); Total Protein 5.4 gm/dl (6.4-8.2)
[2020-08-27] MEDS: PSYLLIUM 58.6% POWDER PACKET PO SCH (07:58)
[2020-08-27] MEDS: PANTOprazole 40 MG TAB PO SCH (07:58)
[2020-08-27] MEDS: CHOLECALCIFEROL 1,000 UNITS 25 MCG TAB PO SCH (07:58)
[2020-08-27] MEDS: ASPIRIN 81 MG ECTAB PO SCH (07:58)
[2020-08-27] MEDS ORDERED: INSULIN GLARGINE SOLOSTAR 100 UNITS/ML 3 ML PEN SC SCH (09:00)
--- NOTE | 2020-08-27 09:29 | Pharmacy Report ---
Glycemic Control Progress Note - Date of Service August 27, 2020 - Scope Glycemic Pharmacist consulted for glycemic control to write orders per [facility] inpatient glycemic control protocol. - Objective Accuchecks BSG(last 24 hours):: 08/26/20 08/26/20 08/26/20 10:00 10:33 11:56 Glucose 246 H POC Glucose 271 H 196 H 08/26/20 08/26/20 08/26/20 14:34 16:16 16:37 Glucose 148 H POC Glucose 111 H 108 H 08/26/20 08/26/20 08/26/20 18:53 20:03 23:56 Glucose 152 H POC Glucose 140 H 130 H 08/27/20 08/27/20 08/27/20 04:33 06:24 07:51 Glucose 164 H POC Glucose 158 H 174 H HbA1c:: Hemoglobin A1c 13.1 % (4.5-5.6) H 08/26/20 02:45 - Recent Pertinent Medications The patient is currently receiving: * Basal insulin: Lantus 30 units every 24 hours * Correctional Insulin: Novolog Correction per scale ACHS Goal Range: Low 110 mg/dL - High 140 mg/dL Correction Factor: 15 mg/dL/unit * Prandial insulin: Per carb ratio of 1 unit per 5 grams CHO consumed - Outpatient Anti-Diabetic Meds metformin (stopped ~1 week ago) - Assessment & Plan ASSESSMENT: * See progress note from 08/26/20 for more background info, in short: * Pt receiving SQ basal bolus insulin regimen for hyperglycemia secondary to baseline DM (outpatient regimen on hold). Patient now has diet ordered. * Patient is currently receiving an average of 64 units of insulin per day * 30 units of basal insulin * 34 units of prandial/correctional insulin * BSGs ranging 108 - 330 mg/dl over the past 24hrs * Changes needed to insulin regimen: * AM Fasting BSG = 174 mg/dl. This is in goal range for patient based on inpatient targets and co-morbidities. Will create a scale for Lantus with doses ranging from 20-30 units based upon BSG. This is full -weight based stress of 1 to 75% of full weight-based stress of 2. Do not want to give more than 30 units at this point as the patient appears to have tolerated that nicely. * Post-prandial BSGs were controlled after patient ate dinner. Continue weight-based stress of 3 Novolog. * Total daily dose is TBD as patient has just started eating. PLAN FOR INPATIENT GLYCEMIC CONTROL: * STARTING Lantus 20-30 units SQ qAM (20 units if BSG < 120 mg/dL; 25 units if BSG 120-150 mg/dL; 30 units if BSG > 150 mg/dL) * Continuing correction factor of 15 mg/dl/unit * Continuing carb ratio of 1 unit per 5 grams CHO consumed * Continuing goal range of Low 110 mg/dL - High 140 mg/dL * Please note that the plan above was derived based on current level of insulin resistance and hospital stress. These recommendations are appropriate for inpatient admission only. Plan of care upon discharge will need to be reassessed to avoid potential outpatient hypo/hyperglycemia. Thank you.
--- NOTE | 2020-08-27 11:08 | Electrocardiogram Report ---
Test Reason : Blood Pressure : / mmHG Vent. Rate : 089 BPM Atrial Rate : 089 BPM P-R Int : 156 ms QRS Dur : 090 ms QT Int : 410 ms P-R-T Axes : 040 003 030 degrees QTc Int : 498 ms Normal sinus rhythm Abnormal ECG When compared with ECG of 30-DEC-2016 13:52, T wave inversion now evident in Inferior leads Inverted T waves have replaced nonspecific T wave abnormality in Anterior leads Confirmed by Doug Carver ([id number]) on 08/27/2020 11:08:08 AM Referred By: Chelsie Cornell Confirmed By:Doug Carver
--- NOTE | 2020-08-27 14:22 | Discharge Summary ---
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 Patient notes that she had been started on Metformin initially in January of 2020 for insulin resistance, and that her dose was increased this past June to 1000mg daily. She stopped taking it 1 week ago due to having abdominal side effects and has noticed that since stopping she has had increased thirst and subsequent increased urination due to taking in more PO. She also notes that the past week she has felt over all increased fatigue and weakness. Denies any specific limb or area of weakness, but that it is very generalized. She has also had a lack of appetite this week. Denies any fever, chills, SOB, chest pain, abdominal pain, nausea, vomiting, diarrhea. Med Hx - [place] Palsy, Acoustic Neuroma, CKD Stage III, Asthma, Hypothyroidism, Hypertension, GERD, DM2 Surg Hx - Multiple facial surgeries regarding her history of [place] Palsy Social Hx - No tobacco or illicit drug use. Quit alcohol 3 months ago, was having 2-3 shots of liquor weekly. Fam Hx - No family hx of DM. Mother Afib, CHF, Hypothyroidism. Brother CHF, Hypothyroidism. Sister Aortic Aneurysm. Admission Exam Per Admitting Provider Constitutional: WD/WN, vitals as above Eyes: PERRL, conjunctivae normal, anicteric sclerae Slight R eye droop ENMT: Nose: + face asymmetric (R sided facial paralysis, 2/2 bells palsy ) Respiratory: normal respiratory effort, lungs clear to auscultation Cardiovascular: Rate/Rhythm: regular rate and regular rhythm Heart Sounds: no murmur Extremities: + edema (+1) Gastrointestinal (Abdomen): normal bowel sounds, soft, nontender, no hepatosplenomegaly Skin: no rashes, warm and dry Psychiatric: A+Ox3, euthymic affect Principal Diagnosis Hyperglycemic Hyperosmolar State Discharge Exam General: A&Ox3. NAD. Cooperative. Obese. HEENT: Atraumatic, normocephalic. Pulm: CTAB A&P. -wheezes, -rales, -rhonchi. Symmetrical chest rise. No increase work of breathing. No respiratory distress. Cardiac: RRR, -mrg. Radial pulses intact and symmetrical. Abdominal: soft, non-tender, non-distended, BS x 4 Neurology: right-sided Tran's palsy (chronic finding) Discharge Data Allergies Allergy/AdvReac Type Severity Reaction Status Date / Time amoxicillin Allergy Intermediate FEET Verified 08/25/20 22:49 SWELLING, THYROID ABNORMALATIES clavulanic acid Allergy Intermediate FEET Verified 08/25/20 22:49 SWELLING, THYROID ABNORMALATIES clindamycin Allergy Intermediate RASH Verified 08/25/20 22:49 Consultations 08/25/20 21:59 ED Decision to Admit Stat Hospital Course (1) Hyperosmolar hyperglycemic state (HHS): Debbie Kothari is a 60 y/o F w/ hx of DM2, 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 Hyperosmolar Hyperglycemic State - A1C 7.6 06/2020 vs 13.1 this admission, likely 2/2 lifestyle/diet. stopping of metformin x 1 week likely only partially contributing - On admission: Started on high rate fluids NSS +20meq KCl 250ml/hr, SQ Insulin Novolog/Lantus - Glucose <200 for more than 24 hours, anion gap resolved - Extensive conversation with patient regarding issues with current dietary compliance and need for multiple postprandial glucose measurements per day, given that patient is unaware of what is increasing her glucose and believes she does well in avoiding sugary foods - No medications on discharge given issues with med compliance and suspicion for dietary non-compliance as well - plan for patient to monitor glucose and work on dietary compliance while setting up close f/u with PCP for further eval/management Acute kidney injury on chronic kidney disease - due to dehydration 2/2 above, SEMAJ resolved with IVFs - f/u BMP as outpatient Asthma -Albuterol PRN Hypothyroidism -Continue home Levothyroxine 150mcg QD Hypertension - Continue home Losartan and HCTZ/Triamterene GERD - Continue home Protonix 40mg QD (2) Asthma: (3) HTN (hypertension): (4) Hyperglycemia: (5) Hypothyroidism: (6) Hypokalemia: (7) Hypophosphatemia: (8) Hypocalcemia: (9) Hypomagnesemia: Total Time Total Time Spent Total Time Spent (In Minutes): Less than 30 minutes Total Time Includes: Examination of the Patient, Discharge Planning and Medication Reconciliation Discharge Plan Discharge Items Patient Disposition: Home - Self-Care Reason For Visit: HHS Discharge Diagnosis: Hyperglycemic Hyperosmolar State Condition on Discharge: Fair Activity: Per Instructions section Non-emergency contact: Primary Care Provider Call non-emergency contact if: you have any medication questions and your symptoms worsen Follow-up/Referrals: Chelsie Cornell MD [Primary Care Provider] - Diet: Carb Consistent or DM2 Addtl Attending Provider Instructions: You were admitted to [facility] on 08/26/2020 for nausea, vomiting and dehydration due to extremely elevated blood sugars, known as hyperglycemic hyperosmolar state (HHS). You were given IV fluids and insulin, which both help to improve the symptoms and high sugars involved with HHS. You did well with these medications and treatments, and your sugars improved. You will be discharged in improved, stable condition. You should follow up with your PCP closely to further treat your diabetes. Additionally, a glucometer has been prescribed. Please check your blood sugars 3 times a day. Try to monitor for the foods that increase your sugars and do your best to avoid them; avoiding high-sugar foods will be imperative for improving your diabetes. For now, you can hold off on your home insulin until you follow up with your PCP - you should follow up within 1 week at the latest. We hope you continue to feel better. It was a pleasure to help provide your care while you were hospitalized. Pending Studies at Discharge: No Stand-Alone Forms: My [facility], Smoking Cessation Medications and DC Order Prescriptions: New (DME) OneTouch Verio test strips Strip See Rx Instructions .ROUTE .MEDSUPPLY Qty: 10 RF: 11 (DME) lancets [OneTouch Delica Lancets] 30 gauge misc See Rx Instructions .ROUTE .MEDSUPPLY Qty: 100 RF: 11 Continued levothyroxine 150 mcg tablet 150 mcg PO DAILY Qty: 90 RF: 3 losartan 100 mg tablet 100 mg PO DAILY Qty: 90 RF: 3 triamterene-hydrochlorothiazid 37.5-25 mg tablet 1 tab PO DAILY Qty: 90 RF: 3 potassium chloride 10 mEq tablet extended release 10 meq PO BID Qty: 180 RF: 1 omega-3 fatty acids 2 cap PO DAILY RF: 0 zinc 50 mg tablet 50 mg PO DAILY RF: 0 multivitamin [Daily Multi-Vitamin] tablet 1 tab PO DAILY RF: 0 esomeprazole magnesium [Nexium] 20 mg capsule,delayed release(DR/EC) 20 mg PO DAILY RF: 0 aspirin 81 mg tablet 81 mg PO DAILY RF: 0 magnesium oxide 400 mg (241.3 mg magnesium) tablet 400 mg PO DAILY Qty: 30 RF: 0 oregano oil 1,500 mg capsule 1,500 mg PO DAILY RF: 0 horse chestnut 300 mg tablet 300 mg PO DAILY RF: 0 cholecalciferol (vitamin D3) 5,000 unit tablet 5,000 units PO DAILY RF: 0 Lacto.acidophilus-Bif.animalis 31 billion cell capsule 1 cap PO DAILY RF: 0 turmeric 400 mg capsule 400 mg PO DAILY RF: 0 Metamucil 3.4 gram/5.4 gram powder 1 tsp PO DAILY RF: 0 erythromycin 5 mg/gram (0.5 %) ointment 1 applic OP UD PRN (Reason: ..) RF: 0 albuterol sulfate 90 mcg/actuation HFA aerosol inhaler 2 puffs inhalation Q4H PRN (Reason: Shortness Of Breath Or Wheezing) Qty: 1 RF: 0 diclofenac sodium 75 mg tablet,delayed release (DR/EC) 75 mg PO BID PRN (Reason: Pain) RF: 0 Discharge Orders: Discharge Order (Routine); Ordered 08/27/20 Ordered By: Theodore Lynch Admission Data Admit Date/Time: 08/26/20 01:05 Attending Provider: Elliot Trujillo Admit Provider: Vicente Oliva Primary Care Provider: Chelsie Cornell Other Providers: Fransisco Mcclelland Lawrence Other Interventions: Discharge Summary Assessment (RN) Last Done: 08/27/20 14:24 Supervising Physician Co-Signing Physician Notes I personally examined the patient and verified all go points of history and exam, discussed case, and agree with decision making with Dr Lynch. Feeling better and feels up to going home. After extensive discussions again, she would prefer to look at lifestyle measures ahead of medications. Given that she is willing to check postprandial glucoses and while she does not recall any carbohydrates that would be driving her sugars, her A1c change and how quickly it changed strongly suggest lifestyle factors rather than metabolic, she will go with lifestyle measures and close follow-up rather than additional medications at this time. Vitals noted, in general she is awake and alert pleasant no distress. HEENT normocephalic atraumatic mucous membranes moist. Breathing unlabored no accessory muscle use good effort. Skin shows no rashes no pallor or icterus. Neuro shows cranial nerves II through XII be grossly intact gross motor and sensory intact. Hyperglycemic dehydration with acute renal failure on admissiondoing much better. Improved dramatically. Stable for home. As above noted, extensive discussions on ongoing management of her diabetes. While she is unaware of what she might be eating, given that her A1c went from 7.6-13 there almost has to be a significant negative lifestyle change at play. Certainly with her hypergly cemic dehydration, and sugars getting as high as hers were, some of her A1c may be "back end loaded" from her acute episode, but overall has to be more than just her going off of her Metformin. In very rare instance some sort of acute insulin deficiency like late in autoimmune diabetes of adulthood could theoretically account for this, but it seems extremely unlikely. With all of this in mind, and not wanting to send "mixed messages" of what is most important for control, we discussed aggressive lifestyle monitoring and then change, with close follow-up for addition with medications if needed in the next few days to a week. I strongly suspect whenever she checks postprandial glucoses she will start to see that she is probably eating something with more starch or sugar in it than she has been able to remember on her diet recall. She is very willing to make changes. We also discussed the critical importance of cardiovascular exercise. Should her sugars be rising unrelentingly, then she knows to follow- up with her PCP in a few days to later this weekwith either Metformin XR, or a GLP being reasonable pharmacologic choices, but as we were discussing the situation, it seemed as I was reading her understanding body language and demeanor, that starting a medicine while also trying to work on aggressive lifestyle change was going to confuse her a little with mixed messaging. Again her A1c's were really quite good up until recently, strongly suggesting a lifestyle component. Stable for home. Close PCP follow-up. otherwise as above. Resident Activity Tracking Resident Involvement: Resident Care Provided Care Provided: Adult [facility]
--- NOTE | 2020-08-27 17:17 | Billing Data ---
Date of Service August 27, 2020 Coding Level of Care Code D/C Day Management <30 mins
== END 2020-08-27 15:14 | disposition home or self-care (01) | DRG 638 ==
LOC: ED 19:51 → 2N 08-26 01:05 → SUATTDRO 08-26 01:05 → 2N 08-26 02:00
DX: E83.51 Hypocalcemia; Z79.82 Long term (current) use of aspirin; J45.909 Unspecified asthma, uncomplicated; E83.39 Other disorders of phosphorus metabolism; Z91.11 Patient's noncompliance with dietary regimen; I12.9 Hypertensive chronic kidney disease with stage 1 through stage 4 chronic kidney disease, or unspecified chronic kidney disease; E11.00 Type 2 diabetes mellitus with hyperosmolarity without nonketotic hyperglycemic-hyperosmolar coma (NKHHC); E87.6 Hypokalemia; Z79.890 Hormone replacement therapy; Z88.0 Allergy status to penicillin; E03.9 Hypothyroidism, unspecified; E86.1 Hypovolemia; N18.30 Chronic kidney disease, stage 3 unspecified; E11.22 Type 2 diabetes mellitus with diabetic chronic kidney disease; T38.3X6A Underdosing of insulin and oral hypoglycemic [antidiabetic] drugs, initial encounter; Z88.1 Allergy status to other antibiotic agents; Z91.128 Patient's intentional underdosing of medication regimen for other reason; K21.9 Gastro-esophageal reflux disease without esophagitis; E83.42 Hypomagnesemia; N17.9 Acute kidney failure, unspecified; Z79.899 Other long term (current) drug therapy; H91.90 Unspecified hearing loss, unspecified ear